=== PATIENT | male | born 1970 | race Caucasian/White ===

== ENCOUNTER 2020-02-15 13:19 | Outpatient (CLI) | payer OTHER, SELFPAY ==
--- NOTE | 2020-02-16 14:39 | ONC CON_ITS ---
Dr. Thornton New Patient Note Patient: Sylvester Ojeda Unit #: [id number]: 1970 Dicatated By: Isabell Thornton M.D.Date of Visit: Feb 15, 2020 Onc MED New Patient/Consult Referring Physician: Cezar Rios M.D. History of Present Illness: Mr. Sylvester Ojeda, is a 49-year-old gentleman with a history of metastatic renal cell carcinoma diagnosed on June 07, 2018 when he underwent liver biopsy which confirmed poorly differentiated carcinoma, consistent with renal primary. As per patient, before diagnosis he was having excessive drowsiness subsequently on June 06, 2018 he was admitted to [facility] in [place] with hypercalcemia at that time he underwent CT scan of chest abdomen pelvis which confirmed right renal mass with multiple lung nodules and liver lesions. Patient also had CT scan of head which was negative for metastatic disease at that time his calcium level was 16.7 with a creatinine 2.77, patient was treated with hydration and also received a dose of Aredia 60 mg. Patient was started on Cabometyx 60 mg p.o. daily on June 18, 2018, and reevaluation on July 02, 2018 showed his creatinine improved to 1.95 from 2.77 but calcium again increased to 14.5 at that time denosumab 120 mg was started on July 02, 2018 and patient developed skin rash and hypertension due to Cabometyx and on September 08, 2018 his Cabometyx dose was decreased to 40 mg p.o. daily due to related side effects. Which he tolerated better and then on December 01, 2018 he went to hospital with shortness of breath CT angio PE protocol revealed moderate sized pleural effusion, thoracentesis was performed and due to recurrent pleural effusions patient had chest tube placed on January 05, 2019. And his Cabometyx was discontinued. Patient was started on Yervoy/Opdivo on on January 28, 2019 and received 3 cycles and it was discontinued because of elevated bilirubin. Patient was treated with steroid for his abnormal LFTs with return to normal. Patient was placed back on single agent Opdivo every 2 weeks on May 2019, which he tolerated well his follow-up CT scan of chest abdomen pelvis done on November 16, 2019 showed 1.3 x 0.9 cm right lower lobe nodule previously measured 1.2 x 0.9., Adjacent right lower lobe nodule is unchanged. 0.6 cm. Segment left lower lobe nodules unchanged. 1 x 0.9 cm perifissural nodule in the middle lobe is unchanged. No new or enlarging dominant nodules or masses seen. Atelectasis or scarring of right base is seen. Mediastinum and chidi showed right Tracheal node measuring 1.4 cm compared to 1.1 cm on previous study subcarinal node measuring up to 1.7 cm compared to 0.6 cm on prior study. An additional 1.8 cm subcarinal lymph node is present as well. 1.5 cm right hilar node previously measured 1.3 cm. 1.7 cm right hilar node previously measured 1.6 cm. Liver showed ill-defined segment 7 lesion measuring up to 2.6 cm which is similar to prior study and remaining bilateral hepatic metastatic disease appears similar to prior. No new lesions seen. Bone shows multiple old right rib fractures. No suspicious sclerotic or lytic bone lesion seen. Patient continue with biweekly Opdivo and follow-up CT scan of chest abdomen pelvis done on January 31, 2020 showed with the exception of smaller subcarinal lymph node the other enlarged mediastinal lymph nodes are unchanged. Stable pulmonary nodules. Stable hepatic metastatic disease. Stable lobulated mass in the right kidney. Now seen are multiple lytic lesions within the pelvis, sacrum, thoracic and lumbar spine and ribs bilaterally.Patient decided to move to [place] from [place], and came to our office in February 2020 to establish care. Today patient is complaining of right chest wall pain and now being controlled with the morphine and Percocet. But requiring more medication. Denies any trauma to his ribs, no hemoptysis or hematemesis, no hematuria, appetite is good., Last dose of Opdivo was On January 31, 2020, Prior to moving to [place] Past Medical History: There is no documented medical history. Past Surgical History: There is no documented surgical history. Medications: Aspirin Adult Low Dose 1 Tablet (of 81 mg) Tablet, enteric coated Oral daily, Atorvastatin Calcium 1 Tablet (of 40 mg) Oral daily, cloNIDine HCl 1 Tablet (of 0.1 mg) Oral b.i.d., hydrALAZINE HCl 1 Tablet (of 50 mg) Oral b.i.d., HYDROcodone-Acetaminophen Tablet Oral PRN, Lisinopril 1 Tablet (of 40 mg) Oral daily, Methocarbamol Tablet Oral, Metoprolol Tartrate 1 Tablet (of 100 mg) Oral b.i.d., Morphine Sulfate ER 1 Tablet (of 30 mg) Tablet, controlled release Oral b.i.d., NIFEdipine ER 1 Tablet (of 60 mg) Tablet SR 24 HR Oral daily, Omeprazole 1 Tablet (of 20 mg) Tablet, enteric coated Oral daily, Ondansetron HCl Tablet Oral, Sertraline HCl 1 Tablet (of 50 mg) Oral daily, Temazepam 1 Capsule (of 30 mg) Oral daily Allergies: No Known Allergies. Social History: Mr. Ojeda is . Mr. Ojeda has never smoked. He is a former drinker. Family History: There is no documented family history. Review Of Symptoms: Constitutional - Appetite is fair and weight is stable. No fever, night sweats, or hot flashes. Energy level is good, ENMT - No sinus congestion. Positive for nasal drainage. No mouth sores. No sore throat or difficulty swallowing, Hematologic/Lymphatic - No abnormal bruising or bleeding, Respiratory - No shortness of breath. No cough. No pleuritic pain or hemoptysis, Cardiovascular - No angina pain. No palpitations, Gastrointestinal - No nausea or vomiting. Positive for heartburn, no acid reflux. No diarrhea or constipation. No blood in the stool or black stools, Genitourinary (M) - No dysuria or hematuria. No urinary frequency. No urgency or incontinence, Musculoskeletal - Positive for generalized joint pain, Neurologic - No headache or dizziness. No numbness or tingling. No other focal neurologic symptoms, Psychiatric - Positive for anxiety, no depression. No insomnia. Vital Signs: Performed on Feb 15, 2020 13:58: 7, 43.42 (HIGH), 2.27 sq.m, 66 in, 97 %, 52 /min (LOW), 16 /min, 143/90 mm(hg) (HIGH), 97.7 F (LOW), and 269.0 lbs (HIGH). Performance Status: 1 - No physically strenuous activity, but ambulatory and able to carry out light or sedentary work (e.g. office work, light house work). (ECOG) Physical Examination: ENMT - No mouth sores, no thrush, no jaundice, Respiratory - Lungs are clear to auscultation, Cardiovascular - Regular rate and rhythm of heart, Abdomen - Soft, bowel sounds present, Extremities - No visible edema. Lab/Imaging: Most recent lab results are not available for this patient. Impression: Metastatic renal cell carcinoma with extensive mets involving bilateral lungs, mediastinum as well as liver and primary in the right kidney, diagnosed in June 2018 per liver biopsy, initially treated with Cabometyx, patient developed side effect like hypertension and skin reaction, Cabometyx dose was reduced to 40 mg p.o. daily from 60 mg, subsequently patient admitted to hospital with progressive pleural effusion which was drained, due to recurrence required chest tube placement. Cabometyx was discontinued in November 2018, he was started on Yervoy/Opdivo on January 28, 2019, patient received 3 doses of immunotherapy but then presented with elevated bilirubin, he was treated with steroids and changed to biweekly Opdivo alone on May 2019. Follow-up CT scan of chest abdomen pelvis done on January 31, 2020 showed stable disease in the lung and liver but no progressive bone mets. Plan: Discussed with patient regarding disease status, patient has metastatic renal cell carcinoma with extensive liver as well as pulmonary/mediastinal mets, now being treated with biweekly Opdivo with decent disease control except now with new bone mets seen on follow-up CT scan of chest abdomen pelvis done on January 31, 2020 and the patient is also having pain in the right chest wall and pelvis. At this point will consider bone scan to confirm bone mets and also refer him to pain clinic, as patient is a self-pay so we will arrange Opdivo and continue with biweekly Opdivo and he will return to clinic 2 weeks after next dose of Opdivo for further discussion with CBC CMP and follow-up bone scan. Signed By: Isabell Thornton M.D. <<Signature on File>>
== END 2020-02-15 13:20 | disposition home or self-care (01) ==
LOC: ONCMED 13:22
PROVIDERS: Visit Provider Internal Medicine Hematology & Oncology
DX: C64.1 Malignant neoplasm of right kidney, except renal pelvis (principal); C78.01 Secondary malignant neoplasm of right lung; C78.7 Secondary malignant neoplasm of liver and intrahepatic bile duct; C78.02 Secondary malignant neoplasm of left lung; C78.1 Secondary malignant neoplasm of mediastinum; R07.89 Other chest pain; Z79.899 Other long term (current) drug therapy; Z79.891 Long term (current) use of opiate analgesic
CPT/HCPCS: 99203; 99214

== ENCOUNTER 2020-03-01 06:08 | Outpatient (CLI) | payer OTHER, SELFPAY | END 2020-03-01 06:09 | disposition home or self-care (01) | LOC: ONCMED 06:10 | PROVIDERS: Visit Provider Internal Medicine Hematology & Oncology | DX: Z51.12 Encounter for antineoplastic immunotherapy (principal); C64.1 Malignant neoplasm of right kidney, except renal pelvis; C78.00 Secondary malignant neoplasm of unspecified lung; C79.51 Secondary malignant neoplasm of bone | CPT/HCPCS: 96413; J7050; J9299 ==

== ENCOUNTER → 2020-03-05 08:51 | Outpatient (BNVA) | payer OTHER, SELFPAY | PROVIDERS: Referring Provider Internal Medicine Hematology & Oncology; Visit Provider Anesthesiology Pain Medicine | DX: C79.51 Secondary malignant neoplasm of bone (principal); C64.9 Malignant neoplasm of unspecified kidney, except renal pelvis; Z79.891 Long term (current) use of opiate analgesic | CPT/HCPCS: 99204 ==

== ENCOUNTER 2020-03-13 13:31 | Inpatient (IN) | payer SELFPAY ==
[2020-03-13] VITALS (38 sets, daily range): BP systolic 98–134; BP diastolic 64–77; PULSE 37–70; RESP 12–28; TEMP 36.5–36.8; O2SAT 93–98; BMI 40.3
--- NOTE | 2020-03-13 14:38 | XR_ITS ---
WS: [id number] XR chest 2V* [id number] REASON FOR EXAM: chest pain FINDINGS: Significant tortuosity of the aorta without significant dilatation. The heart size is normal. Chronic fibrotic appearing changes in the right lower lung. No acute infiltrate noted. 3.4 x 5.8 cm pleural-based mass projecting over the periphery of the right lower lung. There appears to be an associated abnormality in the right sixth rib. XR/XR chest 2V* [id number] IMPRESSION: Probable chest wall metastasis involving the right posterior lateral.
--- NOTE | 2020-03-13 14:39 | ED_ITS ---
HPI - General Adult General: Chief complaint: Weakness Stated complaint: Fatigue/Confusion/Body Aches Time Seen by Provider: 03/13/20 14:19 Source: patient Mode of arrival: ambulatory Limitations: no limitations History of Present Illness: HPI narrative: The patient is a 49-year-old gentleman with a history of stage IV renal cell carcinoma on the right. He presents to the emergency department with his with complaints of confusion, gait difficulties, left lower chest pain anteriorly, and weakness. His states he is displaying symptoms exactly like a few years ago when at that time he was diagnosed with hypercalcemia. She therefore brought him in to be evaluated for this. He denies any fever, cough, shortness of breath, urinary symptoms. Onset (ago): day(s) (2) Associated symptoms: Reports chest pain and confusion; Deny dyspnea, headache(s), nausea, rash, palpitations or vomiting Review of Systems General: Reports: 10 or more systems reviewed and unremarkable except in HPI and below Const: Denies: fever(s), chills or body aches Eyes: Denies: change in vision or blurry vision ENMT: Denies: throat pain, enlarged tonsils, odynophagia, hoarseness, mouth pain or swelling of lips/tongue Card: Reports: chest pain; Denies: palpitations, irregular heart rhythm, edema or swelling of feet/ankles Resp: Denies: dyspnea, productive cough or non-productive cough GI: Denies: abdominal pain, nausea or vomiting : Denies: flank pain, dysuria, urinary frequency, urinary urgency or urinary hesitancy Musc: Denies: neck pain, back pain or extremity swelling Skin/Breast: Denies: rash, pruritus or erythema Neuro: Reports: confusion and other (weakness); Denies: headache(s), numbness in extremities or weakness in extremities Endo: Denies: polyuria, polydipsia or tired all the time PFS ED PFSH: Medical History Cancer determined by renal biopsy Metastatic renal cell carcinoma Family History Father Diabetes Mother Cancer Social History Smoking and tobacco status: never smoked Second hand smoke exposure: No Alcohol intake: former History of recent travel: No Physical Exam Const: COMMON NORMALS: no acute distress, average body habitus, patient oriented x3, no limitations, healthy appearing, alert and well nourished HENMT: COMMON NORMALS: normocephalic, atraumatic and moist oral mucous membranes HEAD & SCALP: normocephalic and atraumatic Neck/C-Spine: COMMON NORMALS: no meningeal signs and no JVD Chest: COMMONS NORMALS: normal inspection of the chest CHEST: Yes tenderness (Left lower chest wall) Resp: COMMON NORMALS: normal respiratory effort, No retractions, No use of accessory muscles, clear to auscultation bilaterally and percussion normal AUSCULTATION: clear to auscultation bilaterally PERCUSSION: percussion normal Cardio: COMMON NORMALS: no JVD, regular rate, regular rhythm, S1 normal heart sound present, S2 normal heart sound present, No gallops present (Cardio), No clicks present (Cardio), No murmurs present (Cardio), No rub (Cardio) and Peripheral pulses 2+ throughout RATE: regular rate RHYTHM: regular rhythm HEART SOUNDS: S1 normal heart sound present and S2 normal heart sound present PERIPHERAL PULSES: Peripheral pulses 2+ throughout GI: COMMON NORMALS: Normal to inspection, nondistended, normoactive bowel sounds present, Soft to palpation, non-tender, No hepatosplenomegaly present, no masses and no bruits PALPATION: Yes Soft to palpation and Yes No hepatosplenomegaly present : COMMON NORMALS: Yes no CVA tenderness BLADDER/KIDNEY EXAM: Yes no CVA tenderness Back/Pelvis: COMMON NORMALS: no CVA tenderness Extremity: COMMON NORMALS: normal to inspection, full ROM, capillary refill normal, no calf tenderness and no pedal edema Neuro: COMMON NORMALS: patient oriented x3 SENSORIUM/ORIENTATION: Yes alert MENINGEAL SIGNS: Yes no meningeal signs Skin: COMMON NORMALS: no rashes or lesions noted, no wounds, turgor normal, no jaundice, no petechiae and no mottling GENERAL SKIN EXAM: no rashes or lesions noted and turgor normal Course Reevaluation(s): Reevaluation #1: Discussed his lab and imaging findings with him and his . Explained that he has severe hypercalcemia like they were worried and per cardiology that is most likely because of his bradycardia. He advised that we correct his electrolyte abnormality and he is heart rate should improve Consultations: Consultation #1: Dr. Powell, cardiology. He came down and evaluated the patient and felt that the bradycardia was secondary to electrolyte abnormalities. He does not think the patient needs pacing at this time. Consultation #2: Dr. Torrez, hospitalist and he kindly accepted this patient to his service. Vital Signs: Vital signs: Vital Signs Temperature 98.2 F 03/13/20 20:00 Pulse Rate 54 L 03/13/20 20:00 Respiratory Rate 14 03/13/20 21:31 Blood Pressure 134/77 03/13/20 20:00 Pulse Oximetry 96 03/13/20 21:31 MDM - General Adult MDM Narrative: Medical decision making narrative: 49-year-old male with renal cell carcinoma who presents to the emergency department with complaints of weakness, confusion, gait difficulties. Evaluation in the emergency shows that he has hypercalcemia of malignancy. He has had this once in the past and needed bisphosphonates as well as fluids. He was started on IV fluids and also given a dose of Reclast in the emergency department. He is admitted for further evaluation and management. In the emergency department he was noted to be bradycardic and dropped as low as the mid 30s. He received a total of 2 mg of intravenous atropine. Cardiology evaluated the patient and felt that this was secondary to electrolyte abnormalities. The patient is also on beta-blockers and calcium channel jorge which may also be contributing to the bradycardia. Medical Records: Attestation: I reviewed the patient's medical records. Lab Data: Attestation: I reviewed the patient's lab results. Labs: Lab Results 03/13/20 03/13/20 03/13/20 Range/Units 15:15 15:15 15:15 WBC 10.6 H (4.0-10.0) 10^3/ uL RBC 4.98 (4.1-5.3) 10^6/u L Hgb 13.8 (11.7-16.6) g/dL Hct 44.2 (42.0-52.0) % MCV 88.8 (80-94) fL MCH 27.7 L (28.0-34.0) pg MCHC 31.2 (30.0-36.0) g/dL RDW 13.5 (12.1-15.1) % Plt Count 282 (130-400) 10^3/c mm MPV 9.8 (7.4-10.4) fL Neut % (Auto) 66.3 % Lymph % (Auto) 20.5 % [place] % (Auto) 10.2 % Eos % (Auto) 2.2 % Baso % (Auto) 0.6 % Neut # (Auto) 7.06 (1.8-7.7) 10^3/u L Lymph # (Auto) 2.2 (0.8-4.8) 10^3/u L [place] # (Auto) 1.1 H (0.2-0.9) 10^3/u L Eos # (Auto) 0.2 (0.0-0.8) 10^3/u L Baso # (Auto) 0.1 (0.0-0.1) 10^3/u L Nucleated RBC % (a uto) 0 % Nucleated RBCs # 0.0 /100WBC D-Dimer 0.74 H (0-0.59) ug/mIFE U Sodium 134 L (136-145) mmol/L Potassium 4.2 (3.5-5.1) mmol/L Chloride 100 (98-107) mmol/L Carbon Dioxide 26 (22-29) mmol/L Anion Gap 12.2 (5-19) BUN 27 H (6-20) mg/dL Creatinine 2.2 H (0.7-1.2) mg/dL GFR Calculation 31.7 L (90-130) mL/min Glucose 100 (65-115) mg/dL Calculated Osmolal ity 283 L (285-295) mOsm/k g Calcium 15.4 H* (8.5-10.5) mg/dL Ionized Calcium Me as (1.1-1.4) mmol/L Phosphorus 2.5 (2.5-4.5) mg/dL Magnesium 1.8 (1.7-2.3) mg/dL Total Bilirubin 0.4 (0.15-1.2) mg/dL AST 18 (0-40) U/L ALT 11 (0-41) U/L Alkaline Phosphata se 140 H (40-130) IU/L Creatine Kinase 37 L (39-308) U/L Troponin T Baselin e (0-15) ng/L Troponin T 120 Min [place] (0-15) ng/L Delta Troponin T (0-10) ABS# C-Reactive Protein 21.3 H (0.0-4.9) mg/L Total Protein 7.2 (6.6-8.7) g/dL Albumin 3.3 L (3.5-5.2) g/dL Globulin 3.9 (1.3-4.6) g/dL Lipase 76 H (13-60) U/L PTH Intact (15-65) pg/mL Calcium (PTH Intac t) (8.5-10.5) mg/dL 03/13/20 03/13/20 03/13/20 Range/Units 15:15 16:50 16:50 WBC (4.0-10.0) 10^3/ uL RBC (4.1-5.3) 10^6/u L Hgb (11.7-16.6) g/dL Hct (42.0-52.0) % MCV (80-94) fL MCH (28.0-34.0) pg MCHC (30.0-36.0) g/dL RDW (12.1-15.1) % Plt Count (130-400) 10^3/c mm MPV (7.4-10.4) fL Neut % (Auto) % Lymph % (Auto) % [place] % (Auto) % Eos % (Auto) % Baso % (Auto) % Neut # (Auto) (1.8-7.7) 10^3/u L Lymph # (Auto) (0.8-4.8) 10^3/u L [place] # (Auto) (0.2-0.9) 10^3/u L Eos # (Auto) (0.0-0.8) 10^3/u L Baso # (Auto) (0.0-0.1) 10^3/u L Nucleated RBC % (a uto) % Nucleated RBCs # /100WBC D-Dimer (0-0.59) ug/mIFE U Sodium (136-145) mmol/L Potassium (3.5-5.1) mmol/L Chloride (98-107) mmol/L Carbon Dioxide (22-29) mmol/L Anion Gap (5-19) BUN (6-20) mg/dL Creatinine (0.7-1.2) mg/dL GFR Calculation (90-130) mL/min Glucose (65-115) mg/dL Calculated Osmolal ity (285-295) mOsm/k g Calcium (8.5-10.5) mg/dL Ionized Calcium Me as (1.1-1.4) mmol/L Phosphorus (2.5-4.5) mg/dL Magnesium (1.7-2.3) mg/dL Total Bilirubin (0.15-1.2) mg/dL AST (0-40) U/L ALT (0-41) U/L Alkaline Phosphata se (40-130) IU/L Creatine Kinase (39-308) U/L Troponin T Baselin e 46 H (0-15) ng/L Troponin T 120 Min [place] 42.89 H (0-15) ng/L Delta Troponin T -3.11 L (0-10) ABS# C-Reactive Protein (0.0-4.9) mg/L Total Protein (6.6-8.7) g/dL Albumin (3.5-5.2) g/dL Globulin (1.3-4.6) g/dL Lipase (13-60) U/L PTH Intact 4.6 L (15-65) pg/mL Calcium (PTH Intac t) 14.7 H* (8.5-10.5) mg/dL 11//20 Range/Units 17:00 WBC (4.0-10.0) 10^3/ uL RBC (4.1-5.3) 10^6/u L Hgb (11.7-16.6) g/dL Hct (42.0-52.0) % MCV (80-94) fL MCH (28.0-34.0) pg MCHC (30.0-36.0) g/dL RDW (12.1-15.1) % Plt Count (130-400) 10^3/c mm MPV (7.4-10.4) fL Neut % (Auto) % Lymph % (Auto) % [place] % (Auto) % Eos % (Auto) % Baso % (Auto) % Neut # (Auto) (1.8-7.7) 10^3/u L Lymph # (Auto) (0.8-4.8) 10^3/u L [place] # (Auto) (0.2-0.9) 10^3/u L Eos # (Auto) (0.0-0.8) 10^3/u L Baso # (Auto) (0.0-0.1) 10^3/u L Nucleated RBC % (a uto) % Nucleated RBCs # /100WBC D-Dimer (0-0.59) ug/mIFE U Sodium (136-145) mmol/L Potassium (3.5-5.1) mmol/L Chloride (98-107) mmol/L Carbon Dioxide (22-29) mmol/L Anion Gap (5-19) BUN (6-20) mg/dL Creatinine (0.7-1.2) mg/dL GFR Calculation (90-130) mL/min Glucose (65-115) mg/dL Calculated Osmolal ity (285-295) mOsm/k g Calcium (8.5-10.5) mg/dL Ionized Calcium Me as 2.0 H* (1.1-1.4) mmol/L Phosphorus (2.5-4.5) mg/dL Magnesium (1.7-2.3) mg/dL Total Bilirubin (0.15-1.2) mg/dL AST (0-40) U/L ALT (0-41) U/L Alkaline Phosphata se (40-130) IU/L Creatine Kinase (39-308) U/L Troponin T Baselin e (0-15) ng/L Troponin T 120 Min [place] (0-15) ng/L Delta Troponin T (0-10) ABS# C-Reactive Protein (0.0-4.9) mg/L Total Protein (6.6-8.7) g/dL Albumin (3.5-5.2) g/dL Globulin (1.3-4.6) g/dL Lipase (13-60) U/L PTH Intact (15-65) pg/mL Calcium (PTH Intac t) (8.5-10.5) mg/dL Imaging Data^: CXR: Attestation: I personally reviewed and interpreted this imaging study as follows: Radiologist's impression: [facility] [address] [place] [address] XRay Report Signed Patient: Sylvester Ojeda #: [id number] : 1970Acct#:[id number] Age/Sex: 49 / MADM Date: 03/13/20 Loc: ERRoom/Bed: Attending Dr: Ordering Provider/Ordering MD: Jaylene Durán MD, [facility] Date of Service: 03/13/20 Procedure(s): XR chest 2V* 22444 Accession Number(s): [id number] Report Number: [id number] WS: [id number] XR chest 2V* [id number] REASON FOR EXAM: chest pain FINDINGS: Significant tortuosity of the aorta without significant dilatation. The heart size is normal. Chronic fibrotic appearing changes in the right lower lung. No acute infiltrate noted. 3.4 x 5.8 cm pleural-based mass projecting over the periphery of the right lower lung. There appears to be an associated abnormality in the right sixth rib. XR/XR chest 2V* [id number] IMPRESSION: Probable chest wall metastasis involving the right posterior lateral. Dictated By:Joesph Curry Jr, MD Signed By:Joesph Curry Jr MDSigned Date/Time:03/13/201518 DD/ EKG Data^: EKG 1: Attestation: I personally reviewed and interpreted this EKG as follows: EKG interpretation date: 03/13/20 EKG interpretation time: 15:09 Prior EKG tracings: not available for review Interpretation: Bradycardic rhythm. Heart rate 44 bpm. Unclear if the patient has P waves so much of this is sinus bradycardia. Right bundle branch block. No ST changes Computer generated interpretation: Chest X-Ray 03/13/20 14:38 IMPRESSION: Probable chest wall metastasis involving the right posterior lateral. EKG 2: Attestation: I personally reviewed and interpreted this EKG as follows: EKG interpretation date: 03/13/20 EKG interpretation time: 16:57 Prior EKG tracings: available for review Interpretation: Sinus bradycardia. Heart rate 35 bpm. Intraventricular conduction delay. Computer generated interpretation: Chest X-Ray 11/10/20 14:38 IMPRESSION: Probable chest wall metastasis involving the right posterior lateral. Critical Care Time Critical Care Time: Critical Care Time: Yes Total Critical Care Time: 60 Attestation: This case had a high probability of a clinically significant, sudden, or life threatening deterioration of this patient's condition which required my full and direct attention, intervention and personal management. Discharge Plan Discharge Patient Disposition: Admitted As Inpatient Admit Provider: Elmer Torrez Clinical Impression: Hypercalcemia, Bone metastases, Metastatic renal cell carcinoma Condition: Stable Coding Level of Care Code ED Instrumentation Engineering Technician for Chg Fwd Exam Comprehensive
--- NOTE | 2020-03-13 14:44 | ECG_ITS ---
[facility] Test Date: 2020-03-13 Pat Name: Sylvester Ojeda Department: Room: Gender: Male Barking Machine Feeder: : 1970 Requested By: Jaylene Durán I Order Number: [id number] Jack MD: Peter Garcia M.D. Measurements Intervals [place] Rate: 44 P: MO: -1 QRS: 240 QRSD: 194 T: -30 QT: 481 QTc: 413 Interpretive Statements Possible junctional rhythm RIGHT AXIS DEVIATION [QRS AXIS > 100] RIGHT BUNDLE BRANCH BLOCK [120+ ms QRS DURATION, UPRIGHT V1, 40+ ms S IN I/aVL/V4/V5/V6] No previous ECG available for comparison Electronically Signed On 03-13-2020 19:22:01 DOUBLE NEEDLE OPERATOR LOCKSTITCH by Peter Garcia M.D. [id number]
[2020-03-13] MEDS: atropine 0.1 mg/mL Syr 10 mL 1 MG (15:28)
[2020-03-13 15:31] LABS: Basophils # 0.1 10^3/uL (0.0-0.1); Basophils % 0.6 %; Eosinophils # 0.2 10^3/uL (0.0-0.8); Eosinophils % 2.2 %; Hematocrit 44.2 % (42.0-52.0); Hemoglobin 13.8 g/dL (11.7-16.6); Lymphocytes # 2.2 10^3/uL (0.8-4.8); Lymphocytes % 20.5 %; Mean Corpuscular HGB Conc 31.2 g/dL (30.0-36.0); Mean Corpuscular Hemoglobin 27.7 pg (28.0-34.0); Mean Corpuscular Volume 88.8 fL (80-94); Mean Platelet Volume 9.8 fL (7.4-10.4); Monocytes # 1.1 10^3/uL (0.2-0.9); Monocytes % 10.2 %; Neutrophils # 7.06 10^3/uL (1.8-7.7); Neutrophils % 66.3 %; Nucleated Red Blood Cells % 0 %; Platelet Count 282 10^3/cmm (130-400); Red Blood Count 4.98 10^6/uL (4.1-5.3); Red Cell Distribution Width 13.5 % (12.1-15.1); White Blood Count 10.6 10^3/uL (4.0-10.0)
--- NOTE | 2020-03-13 15:31 | PC.NURSE ---
Patient was placed on cardiac rehab nurse at and was found to have a bradycardic rhythm at 32bpm, patient placed on Zoll monitor and was given 1mg of Atropine per Dr Durán orders. Patient's heart rate is 44bpm and is resting at this time with no symptoms.
[2020-03-13] MEDS: atropine 0.1 mg/mL Syr 10 mL 0.5 MG IVP ×2 (15:54→16:04)
[2020-03-13 15:55] LABS: D Dimer 0.74 ug/mIFEU (0-0.59)
[2020-03-13 15:56] LABS: Alanine Aminotransferase 11 U/L (0-41); Albumin Level 3.3 g/dL (3.5-5.2); Alkaline Phosphatase 140 IU/L (40-130); Anion Gap 12.2 (5-19); Aspartate Amino Transferase 18 U/L (0-40); Blood Urea Nitrogen 27 mg/dL (6-20); C Reactive Protein 21.3 mg/L (0.0-4.9); Carbon Dioxide 26 mmol/L (22-29); Chloride 100 mmol/L (98-107); Creatine Phosphokinase 37 U/L (39-308); Globulin 3.9 g/dL (1.3-4.6); Glomerular Filtration Rate 31.7 mL/min (90-130); Glucose 100 mg/dL (65-115); Lipase 76 U/L (13-60); Magnesium 1.8 mg/dL (1.7-2.3); Osmolality Calculated 283 mOsm/kg (285-295); Phosphorus 2.5 mg/dL (2.5-4.5); Potassium 4.2 mmol/L (3.5-5.1); Sodium 134 mmol/L (136-145); Total Bilirubin 0.4 mg/dL (0.15-1.2); Total Protein 7.2 g/dL (6.6-8.7)
[2020-03-13] MEDS: sodium chloride 0.9% 1,000 ML 999 ML IV (16:09)
[2020-03-13 16:10] LABS: Troponin(5th) Baseline 46 ng/L (0-15)
[2020-03-13 16:27] LABS: Calcium 15.4 mg/dL (8.5-10.5)
--- NOTE | 2020-03-13 16:44 | ECG_ITS ---
[facility] Test Date: 2020-03-13 Pat Name: Sylvester Ojeda Department: Room: Gender: Male Traffic Safety Administrator: : 1970 Requested By: Jaylene Durán I Order Number: [id number] Jack MD: Peter Garcia M.D. Measurements Intervals [place] Rate: 35 P: 48 GA: 143 QRS: -85 QRSD: 196 T: 11 QT: 510 QTc: 394 Interpretive Statements SINUS BRADYCARDIA WITH SINUS ARRHYTHMIA INTRAVENTRICULAR CONDUCTION DELAY [130+ ms QRS DURATION] LATERAL MYOCARDIAL INFARCTION , OF INDETERMINATE AGE [40+ ms Q WAVE AND/OR ST/T ABNORMALITY IN I/aVL/V5/V6] CRITICAL TEST RESULT Compared to ECG 03/13/2020 15:09:38 Intraventricular conduction delay now present Myocardial infarct finding now present Right-axis deviation no longer present Right bundle-branch block no longer present Electronically Signed On 03-13-2020 19:27:30 SOCIAL MEDIA CAMPAIGN MANAGER by Peter Garcia M.D. [id number]
[2020-03-13 17:32] LABS: Troponin 5 2HR 42.89 ng/L (0-15)
[2020-03-13] MEDS: sodium chloride 0.9% 250 ML IV (17:35)
[2020-03-13 17:38] LABS: Troponin 5 2HR Delta -3.11 ABS# (0-10)
--- NOTE | 2020-03-13 17:53 | PM.HP ---
Providers/Chief Complaint Admitting Physician: Elmer Torrez MD Chief Complaint: Fatigue/Confusion/Body Aches History of Present Illness Sylvester Ojeda is a 49 year old male 49-year-old gentleman with PMH of metastatic renal cell carcinoma diagnosed on June 07, 2018 ( liver biopsy which confirmed poorly differentiated carcinoma, consistent with renal primary ) ,HTN was admitted with c/o confusion, lethargy, constipation for the last 2 days.Upon arrival in the ER CMP has shown Corrected Serum Calcium of : 15.4. On ROS he deny any cough, chest pain,SOB,N/V/D,urinary complains,abdominal pain,headache,cough, fever. EKG: SINUS BRADYCARDIA and corrected ( QTc: 394 ) Xray Chest : Probable chest wall metastasis involving the right posterior lateral. Troponin T : Baseline : 46 2 H T: 42.89 Delta : -3.11 Review of Systems General: Reports: 10 or more systems reviewed and unremarkable except in HPI and below Const: Denies: fever(s), chills, body aches, change in appetite or diaphoresis Card: Denies: palpitations, swelling of feet/ankles, dyspnea on exertion, orthopnea or leg pain with exertion Resp: Denies: dyspnea, productive cough, wheezing or pain on inspiration GI: Denies: abdominal pain, nausea, vomiting or diarrhea : Denies: flank pain or difficulty urinating Musc: Denies: back pain, extremity pain or extremity swelling Neuro: Denies: headache(s), difficulty walking or confusion Medications/Allergies Home Medications Medication Instructions Recorded Confirmed Last Taken Type aspirin 81 mg tablet,delayed 81 mg PO DAILY 03/05/20 03/13/20 03/13/20 History release atorvastatin 40 mg tablet 40 mg PO DAILY 03/05/20 03/13/20 03/13/20 History clonidine HCl 0.1 mg tablet 0.1 mg PO BID 03/05/20 03/13/20 03/13/20 History diclofenac sodium 1 % topical gel 2 gm TOPICAL QID 03/05/20 03/13/20 Unknown History hydralazine 50 mg tablet 50 mg PO BID tab 03/05/20 03/13/20 03/13/20 History hydrocodone 5 mg-acetaminophen 325 1 tab PO BID PRN 30 Days #60 tab 03/05/20 03/13/20 03/13/20 Rx mg tablet lisinopril 40 mg tablet 40 mg PO DAILY 03/05/20 03/13/20 03/13/20 History methocarbamol 500 mg tablet 500 mg PO TID tab 03/05/20 03/13/20 03/13/20 History metoprolol tartrate 100 mg tablet 100 mg PO BID tab 03/05/20 03/13/20 03/13/20 History morphine 30 mg tablet, crush 30 mg PO Q12H 30 Days #60 each 03/05/20 03/13/20 03/13/20 Rx resistant, extended release naloxegol 25 mg tablet 25 mg PO QAM #30 tab 03/05/20 03/13/20 Unknown Rx naloxone 4 mg/actuation nasal spray 4 mg INTRANASAL Q3M PRN #2 each 03/05/20 03/13/20 Unknown Rx nifedipine 60 mg tablet,extended 60 mg PO DAILY 03/05/20 03/13/20 03/13/20 History release nivolumab 240 mg/24 mL intravenous 240 mg IVP .BIWEELY ml 03/05/20 03/13/20 Unknown History solution omeprazole 20 mg capsule,delayed 20 mg PO DAILY 03/05/20 03/13/20 03/13/20 History release ondansetron HCl 4 mg tablet 4 mg PO DAILY PRN tab 03/05/20 03/13/20 03/13/20 History sertraline 50 mg tablet 50 mg PO DAILY 03/05/20 03/13/20 03/13/20 History temazepam 30 mg capsule 30 mg PO .HS cap 03/05/20 03/13/20 03/12/20 History Allergies Allergy/AdvReac Type Severity Reaction Status Date / Time No Known Allergies Allergy Verified 03/13/20 13:43 PFSH Acute PFSH: Medical History Cancer determined by renal biopsy Metastatic renal cell carcinoma Family History (Reviewed 03/13/20 @ 14:44 by Jaylene Durán MD, [facility] [place] [facility] [place] Father Diabetes Mother Cancer Social History (Reviewed 03/13/20 @ 14:44 by Jaylene Durán MD, [facility] [facility] [place] Smoking and tobacco status: never smoked Second hand smoke exposure: No Alcohol intake: former History of recent travel: No Vitals/I&O/Wt Last Vital Signs Temp 97.7 F 03/13/20 13:39 Pulse 40 L 03/13/20 15:13 Resp 13 03/13/20 15:30 BP 100/66 03/13/20 15:13 Pulse Ox 95 03/13/20 15:13 03/13/20 03/13/20 03/13/20 06:59 14:59 22:59 Intake Total 1000 / 1000 Balance 1000 / 1000 Weight last 48 hrs Weight 113.398 kg Physical Exam Const: COMMON NORMALS: patient oriented x3 HENMT: COMMON NORMALS: normocephalic, atraumatic, hearing grossly normal bilaterally and external ears normal HEAD & SCALP: normocephalic and atraumatic EXTERNAL EAR: Yes external ears normal Eye: COMMON NORMALS: no scleral icterus GENERAL EYE: appearance normal, both eyes and all related structures Chest: COMMONS NORMALS: normal inspection of the chest and normal palpation of entire chest wall CHEST: Yes Symmetrical chest wall rise Resp: COMMON NORMALS: normal respiratory effort, No retractions, No use of accessory muscles and clear to auscultation bilaterally EFFORT & INSPECTION: Yes symmetric chest movement AUSCULTATION: clear to auscultation bilaterally Cardio: COMMON NORMALS: regular rate, regular rhythm, S1 normal heart sound present, S2 normal heart sound present, No gallops present (Cardio), No murmurs present (Cardio), No rub (Cardio) and Peripheral pulses 2+ throughout RATE: regular rate RHYTHM: regular rhythm HEART SOUNDS: S1 normal heart sound present and S2 normal heart sound present PERIPHERAL PULSES: Peripheral pulses 2+ throughout GI: COMMON NORMALS: Normal to inspection, nondistended, normoactive bowel sounds present, Soft to palpation, non-tender, No hepatosplenomegaly present and no masses AUSCULTATION: Yes normoactive bowel sounds PALPATION: Yes Soft to palpation and Yes No hepatosplenomegaly present RECTAL EXAM: Yes deferred Extremity: COMMON NORMALS: no clubbing, cyanosis or edema and no pedal edema Neuro: COMMON NORMALS: patient oriented x3 Data : 03/13/20 15:15 03/13/20 15:15 A&P Assessment and plan (1) Hypercalcemia: Patient has known prior h/o of hypercalcemia of malignancy and has received both Zoledronic acid as well Denosumab (RANK inhibitors in the past ) Current plan: Calcitonin 450 u SC * 1 Dose Zoledronic acid ( Reclast ) * 1 dose Has got 1 l BOLUS n.s Currently on 250 cc N.S /HR Monitor I/O Monitor CMP Intact PTH Status: Acute (2) MEÑO (acute kidney injury): MEÑO V/S MEÑO ON CKD SCR: 2.2 Baseline SCR is unkown Continue I.V Hydration Status: Acute (3) Bradycardia: Asymptomatic Sinus Bradycardia likely 2/2 to electrolytes abnormality Tele Status: Acute (4) Hypertension: Currently Hypotensive Monitor B/P Status: Acute (5) Metastatic renal cell carcinoma: No acute intervention for now Status: Acute (6) Bone metastases: Pain Control Status: Acute Additional A&P Information DVT PPX: Heparin 5000 U SC Q12 H DAILY Code Status :Full code Disposition : Home Attestations Medical Necessity Statement*: Patient needs to be in hospital for the management of severe smyptomatic hypercalcemia of malignancy.Anticipated LOS is greater then 2 midnights. Coding Level of Care Code Acute Rn Clinical Quality for Chg Fwd Diagnoses Hypercalcemia E83.52 MEÑO (acute kidney injury) N17.9 Bradycardia R00.1 Hypertension I10 Metastatic renal cell carcinoma C64.9 Bone metastases C79.51
--- NOTE | 2020-03-13 18:20 | PM.CONSULT ---
Providers/Reason For Consult Consulting Physican/Specialty*: Robi Powell MD/Cardiology Reason for Consult*: Significant bradycardia Requesting Physcian: Betzaida Durán MD History of Present Illness History of Present Illness Sylvester Ojeda is a 49 year old male with PMH of metastatic renal cell carcinoma,hypertension being followed by Dr Thornton presented with 2 days of significant fatigue, weakness, constipation and confusion. According to patient, he had hypercalcemia in the past and felt that the symptoms are similar and that prompted him to present to the ER today. On presentation his calcium level was found to be >15. He had significant bradycardia in 30s. Patient does not have syncope, significant chest pain or presyncope.. He does feel short of breath occasionally. His blood pressure at time of my evaluation was 110/60mmhg. He mentions on one of his prior hospital admissions, he was found to have low heart rates as well but not as low as today. Review of Systems General: Reports: 10 or more systems reviewed and unremarkable except in HPI and below Const: Denies: fever(s), chills, body aches, change in appetite or diaphoresis Card: Denies: palpitations, swelling of feet/ankles, dyspnea on exertion, orthopnea or leg pain with exertion Resp: Denies: dyspnea, productive cough, wheezing or pain on inspiration GI: Denies: abdominal pain, nausea, vomiting or diarrhea : Denies: flank pain or difficulty urinating Musc: Denies: back pain, extremity pain or extremity swelling Neuro: Denies: headache(s), difficulty walking or confusion Meds/Allergies Home Medications and Allergies Home Medications Medication Instructions Recorded Confirmed Last Taken Type aspirin 81 mg tablet,delayed 81 mg PO DAILY 03/05/20 03/13/20 03/13/20 History release atorvastatin 40 mg tablet 40 mg PO DAILY 03/05/20 03/13/20 03/13/20 History clonidine HCl 0.1 mg tablet 0.1 mg PO BID 03/05/20 03/13/20 03/13/20 History diclofenac sodium 1 % topical gel 2 gm TOPICAL QID 03/05/20 03/13/20 Unknown History hydralazine 50 mg tablet 50 mg PO BID tab 03/05/20 03/13/20 03/13/20 History hydrocodone 5 mg-acetaminophen 325 1 tab PO BID PRN 30 Days #60 tab 03/05/20 03/13/20 03/13/20 Rx mg tablet lisinopril 40 mg tablet 40 mg PO DAILY 03/05/20 03/13/20 03/13/20 History methocarbamol 500 mg tablet 500 mg PO TID tab 03/05/20 03/13/20 03/13/20 History metoprolol tartrate 100 mg tablet 100 mg PO BID tab 03/05/20 03/13/20 03/13/20 History morphine 30 mg tablet, crush 30 mg PO Q12H 30 Days #60 each 03/05/20 03/13/20 03/13/20 Rx resistant, extended release naloxegol 25 mg tablet 25 mg PO QAM #30 tab 03/05/20 03/13/20 Unknown Rx naloxone 4 mg/actuation nasal spray 4 mg INTRANASAL Q3M PRN #2 each 03/05/20 03/13/20 Unknown Rx nifedipine 60 mg tablet,extended 60 mg PO DAILY 03/05/20 03/13/20 03/13/20 History release nivolumab 240 mg/24 mL intravenous 240 mg IVP .BIWEELY ml 03/05/20 03/13/20 Unknown History solution omeprazole 20 mg capsule,delayed 20 mg PO DAILY 03/05/20 03/13/20 03/13/20 History release ondansetron HCl 4 mg tablet 4 mg PO DAILY PRN tab 03/05/20 03/13/20 03/13/20 History sertraline 50 mg tablet 50 mg PO DAILY 03/05/20 03/13/20 03/13/20 History temazepam 30 mg capsule 30 mg PO .HS cap 03/05/20 03/13/20 03/12/20 History Allergies Allergy/AdvReac Type Severity Reaction Status Date / Time No Known Allergies Allergy Verified 03/13/20 13:43 Current Medications Current Medications Generic Name Dose Route Start Last Admin Trade Name Freq PRN Reason Stop Dose Admin Sodium Chloride 250 mls @ 250 mls/hr 03/13/20 17:30 03/13/20 17:35 Sodium Chloride 0.9% IV 250 mls/hr .Q1H ROC Administration Sodium Chloride 1,000 mls @ 250 mls/hr 03/13/20 17:45 03/13/20 18:05 Sodium Chloride 0.9% IV Not Given .Q4H ROC PFSH Acute PFSH: Medical History Cancer determined by renal biopsy Metastatic renal cell carcinoma Family History Father Diabetes Mother Cancer Social History Smoking and tobacco status: never smoked Second hand smoke exposure: No Alcohol intake: former History of recent travel: No Vitals/I&O/Wt Last Vital Signs Temp 97.7 F 03/13/20 13:39 Pulse 40 L 03/13/20 15:13 Resp 13 03/13/20 15:30 BP 100/66 03/13/20 15:13 Pulse Ox 95 03/13/20 15:13 03/13/20 03/13/20 03/13/20 06:59 14:59 22:59 Intake Total 1000 / 1000 Balance 1000 / 1000 Weight last 48 hrs Weight 250 lb Physical Exam Const: COMMON NORMALS: patient oriented x3 HENMT: COMMON NORMALS: normocephalic, atraumatic, hearing grossly normal bilaterally and external ears normal HEAD & SCALP: normocephalic and atraumatic EXTERNAL EAR: Yes external ears normal Eye: COMMON NORMALS: no scleral icterus GENERAL EYE: appearance normal, both eyes and all related structures Chest: COMMONS NORMALS: normal inspection of the chest and normal palpation of entire chest wall CHEST: Yes Symmetrical chest wall rise Resp: COMMON NORMALS: normal respiratory effort, No retractions, No use of accessory muscles and clear to auscultation bilaterally EFFORT & INSPECTION: Yes symmetric chest movement AUSCULTATION: clear to auscultation bilaterally Cardio: COMMON NORMALS: regular rate (bradycardic), regular rhythm, S1 normal heart sound present, S2 normal heart sound present, No gallops present (Cardio), No murmurs present (Cardio), No rub (Cardio) and Peripheral pulses 2+ throughout RHYTHM: regular rhythm HEART SOUNDS: S1 normal heart sound present and S2 normal heart sound present PERIPHERAL PULSES: Peripheral pulses 2+ throughout GI: COMMON NORMALS: Normal to inspection, nondistended, normoactive bowel sounds present, Soft to palpation, non-tender, No hepatosplenomegaly present and no masses AUSCULTATION: Yes normoactive bowel sounds PALPATION: Yes Soft to palpation and Yes No hepatosplenomegaly present RECTAL EXAM: Yes deferred Extremity: COMMON NORMALS: no clubbing, cyanosis or edema and no pedal edema Neuro: COMMON NORMALS: patient oriented x3 A&P Assessment and plan (1) Bradycardia: Status: Acute (2) Hypertension: Status: Acute (3) Hypercalcemia: Status: Acute (4) Bone metastases: Status: Acute (5) Metastatic renal cell carcinoma: Status: Acute Patient has significant bradycardia in the setting of hypercalcemia. I have reviewed his EKGs that are consistent with sinus bradycardia with sinus arrhythmias. He is hemodynamically stable. Bradycardia is related to electrolyte abnormalities. It will improve with improvement in calcium levels. Avoid rate limiting medications Tele monitoring No indication for pacemaker at this time Thank you for involving us with the care of this patient. We will follow patient. 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
[2020-03-13 18:31] LABS: Parathyroid Hormone 4.6 pg/mL (15-65)
[2020-03-13 18:44] LABS: Calcium 14.7 mg/dL (8.5-10.5)
[2020-03-13] MEDS: heparin 5,000 unit/mL INJ 1 mL 5000 UNIT SUBCUT (18:44)
[2020-03-13] MEDS: calcitonin,salmon 200 unit/mL SDV 2mL 450 UNIT SUBCUT (18:44)
--- NOTE | 2020-03-13 20:44 | ECG_ITS ---
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 Measurements Intervals [place] Rate: 58 P: 25 LA: 141 QRS: -85 QRSD: 198 T: 39 QT: 471 QTc: 466 Interpretive Statements SINUS BRADYCARDIA RIGHT BUNDLE BRANCH BLOCK [120+ ms QRS DURATION, UPRIGHT V1, 40+ ms S IN I/aVL/V4/V5/V6] LEFT ANTERIOR FASCICULAR BLOCK [QRS AXIS <= -45, QR IN I, RS IN II] SEPTAL MYOCARDIAL INFARCTION [40+ ms Q WAVE IN V1/V2], OF INDETERMINATE AGE Compared to ECG 03/13/2020 16:57:09 Right bundle-branch block now present Left anterior fascicular block now present Sinus arrhythmia no longer present Intraventricular conduction delay no longer present Myocardial infarct finding still present Electronically Signed On 03-14-2020 10:21:34 AUTHOR'S AGENT by Robi Powell M.D. [id number]
[2020-03-13 20:55] LABS: Add Urine Microscopic? NO
[2020-03-13 21:08] LABS: Bilirubin Urine Neg (Negative); Blood Urine Neg (Negative); Glucose Urine UA Norm (Normal); Ketones Urine Negative (Negative); Leukocyte Esterase Urine Negative (Negative); Nitrate Urine Negative (Negative); Protein Urine Neg (Negative); Urine Appearance Clear (CLEAR); Urine Color Yellow (Yellow); Urobilinogen Urine Norm (Negative)
[2020-03-13] MEDS: temazepam 15 mg Capsule 30 MG PO (21:30)
[2020-03-13] MEDS: sodium chloride 0.9% 1,000 ML 250 ML IV (22:03)
[2020-03-13 22:20] LABS: Troponin 5 6HR 35.21 ng/L (0-15); Troponin 5 6HR Delta -10.79 ng/L (0-12)
--- NOTE | 2020-03-13 23:36 | PC.NURSE ---
NURSING NOTE: PT ARRIVED TO CSU AT 2000 THIS EVENING. UP WITH ASSIST X1 FOR AMBULATION/PT DIZZY UPON STANDING. PT C/O LEFT FLANK PAIN UPON ARRIVAL OF 9/10 ON PAIN SCALE. PAIN MEDICATION GIVEN ORDERED. HR IN THE 50'S UPON ARRIVAL/ OF 2330 HEART RATE SUSTAINING IN THE LOW TO MID 60'S. SINUS RHYTHM ON THE MONITOR. PT ALERT AND ORIENTED X4. MOVES ALL EXTREMITIES AND FOLLOWS ALL COMMANDS. ALL VS AND ASSESSMENTS CHARTED. RESTING WITH EYES CLOSED. NO DISTRESS NOTED AT THIS TIME.
[2020-03-14] VITALS (64 sets, daily range): BP systolic 100–159; BP diastolic 57–102; PULSE 56–82; RESP 9–31; TEMP 36.1–36.8; O2SAT 88–96
[2020-03-14] MEDS: sodium chloride 0.9% 1,000 ML 250 ML IV ×3 (01:56→09:47)
[2020-03-14 05:41] LABS: Basophils % 0.4 %; Eosinophils # 0.1 10^3/uL (0.0-0.8); Eosinophils % 1.5 %; Hematocrit 40.3 % (42.0-52.0); Hemoglobin 12.6 g/dL (11.7-16.6); Lymphocytes # 1.8 10^3/uL (0.8-4.8); Lymphocytes % 21.6 %; Mean Corpuscular HGB Conc 31.3 g/dL (30.0-36.0); Mean Corpuscular Hemoglobin 27.9 pg (28.0-34.0); Mean Corpuscular Volume 89.4 fL (80-94); Mean Platelet Volume 9.8 fL (7.4-10.4); Monocytes # 0.7 10^3/uL (0.2-0.9); Monocytes % 8.5 %; Neutrophils # 5.72 10^3/uL (1.8-7.7); Neutrophils % 67.8 %; Nucleated Red Blood Cells % 0 %; Platelet Count 224 10^3/cmm (130-400); Red Blood Count 4.51 10^6/uL (4.1-5.3); Red Cell Distribution Width 13.3 % (12.1-15.1); White Blood Count 8.4 10^3/uL (4.0-10.0)
[2020-03-14] MEDS: heparin 5,000 unit/mL INJ 1 mL 5000 UNIT SUBCUT ×2 (05:51→18:44)
--- NOTE | 2020-03-14 06:18 | PC.NURSE ---
SHIFT SUMMARY: PT RESTING QUIETLY. UP TO BR AT THIS TIME. REQUIRES SBA X1/IS UNSTEADY ON FEET. ALERT AND ORIENTED X4. DENIES PAIN. ALL VS AND ASSESSMENTS CHARTED.
[2020-03-14 06:25] LABS: Alanine Aminotransferase 9 U/L (0-41); Alkaline Phosphatase 125 IU/L (40-130); Anion Gap 12.1 (5-19); Aspartate Amino Transferase 16 U/L (0-40); Blood Urea Nitrogen 22 mg/dL (6-20); Calcium 12.7 mg/dL (8.5-10.5); Carbon Dioxide 24 mmol/L (22-29); Chloride 105 mmol/L (98-107); Globulin 3.4 g/dL (1.3-4.6); Glomerular Filtration Rate 42.7 mL/min (90-130); Glucose 98 mg/dL (65-115); Magnesium 1.4 mg/dL (1.7-2.3); NT Pro B Type Natriuretic Pept 735 pg/mL (0-125); Osmolality Calculated 287 mOsm/kg (285-295); Phosphorus 2.1 mg/dL (2.5-4.5); Potassium 4.1 mmol/L (3.5-5.1); Sodium 137 mmol/L (136-145); Thyroid Stimulating Hormone 0.52 uIU/mL (0.27-4.20); Total Bilirubin 0.4 mg/dL (0.15-1.2); Total Protein 6.4 g/dL (6.6-8.7)
[2020-03-14] MEDS: atorvastatin 40 mg Tablet PO (08:01)
[2020-03-14] MEDS: docusate sodium 100 mg Capsule PO ×2 (08:01→18:44)
[2020-03-14] MEDS: aspirin 81 mg EC Tablet PO (08:01)
[2020-03-14] MEDS: sertraline 50 mg Tablet PO (08:01)
--- NOTE | 2020-03-14 10:35 | P.PN_ITS ---
Subjective Subjective: Interval history: Patient has significantly improved today,currently not confused. Vitals and labs stable Good Urine Output : with marked improvement in MEÑO. Medications: Reviewed: Yes Vitals/I&O/Wt Last Vital Signs Temp 97.8 F 03/14/20 07:28 Pulse 74 03/14/20 10:00 Resp 9 L 03/14/20 10:00 BP 122/76 03/14/20 08:00 Pulse Ox 95 03/14/20 10:00 03/13/20 03/14/20 03/14/20 22:59 06:59 14:59 Intake Total 1590 / 1590 1945.833 / 3535.833 1107.5 / 1107.5 Output Total 600 / 600 400 / 1000 Balance 990 / 990 1545.833 / 2535.833 1107.5 / 1107.5 Weight last 48 hrs Weight 119.884 kg Weight 113.398 kg Physical Exam Const: COMMON NORMALS: patient oriented x3 HENMT: COMMON NORMALS: normocephalic, atraumatic, hearing grossly normal bilaterally and external ears normal HEAD & SCALP: normocephalic and atraumatic EXTERNAL EAR: Yes external ears normal Eye: COMMON NORMALS: no scleral icterus GENERAL EYE: appearance normal, both eyes and all related structures Chest: COMMONS NORMALS: normal inspection of the chest and normal palpation of entire chest wall CHEST: Yes Symmetrical chest wall rise Resp: COMMON NORMALS: normal respiratory effort, No retractions, No use of accessory muscles and clear to auscultation bilaterally EFFORT & INSPECTION: Yes symmetric chest movement AUSCULTATION: clear to auscultation bilaterally Cardio: COMMON NORMALS: regular rate, regular rhythm, S1 normal heart sound present, S2 normal heart sound present, No gallops present (Cardio), No murmurs present (Cardio), No rub (Cardio) and Peripheral pulses 2+ throughout RATE: regular rate RHYTHM: regular rhythm HEART SOUNDS: S1 normal heart sound present and S2 normal heart sound present PERIPHERAL PULSES: Peripheral pulses 2+ throughout GI: COMMON NORMALS: Normal to inspection, nondistended, normoactive bowel sounds present, Soft to palpation, non-tender, No hepatosplenomegaly present and no masses AUSCULTATION: Yes normoactive bowel sounds PALPATION: Yes Soft to palpation and Yes No hepatosplenomegaly present RECTAL EXAM: Yes deferred : COMMON NORMALS: Yes no CVA tenderness BLADDER/KIDNEY EXAM: Yes no CVA tenderness Back/Pelvis: COMMON NORMALS: no CVA tenderness Extremity: COMMON NORMALS: no clubbing, cyanosis or edema and no pedal edema Neuro: COMMON NORMALS: patient oriented x3 Data : 03/14/20 04:37 03/14/20 04:37 A&P Assessment and plan (1) Hypercalcemia: Patient has known prior h/o of hypercalcemia of malignancy and has received both Zoledronic acid as well Denosumab (RANK inhibitors in the past ) Current plan: Calcitonin 450 u SC * 1 Dose Zoledronic acid ( Reclast ) * 1 dose Has got 1 l BOLUS n.s Currently on 150 cc N.S /HR Monitor I/O Monitor CMP Intact PTH Status: Acute (2) MEÑO (acute kidney injury): MEÑO V/S MEÑO ON CKD SCR: 2.2 Baseline SCR is unkown SCR has trended down to 1.7 today in am Continue I.V Hydration Status: Acute (3) Bradycardia: Asymptomatic Sinus Bradycardia likely 2/2 to electrolytes abnormality has resolved H.R has remanied above 60/min Tele Status: Acute (4) Hypertension: Currently Normotensive Monitor B/P Status: Acute (5) Metastatic renal cell carcinoma: No acute intervention for now Status: Acute Qualifiers: Laterality: right Qualified Code(s): C64.1 - Malignant neoplasm of rig ht kidney, except renal pelvis (6) Bone metastases: Pain Control Status: Acute Additional A&P Information DVT PPX: Heparin 5000 U SC Q12 H DAILY Code Status :Full code Disposition : Home Attestations Medical Necessity Statement*: Patient needs to be in hospital for the management of severe symptomatic hypercalcemia of malignancy Coding Level of Care Code Acute 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
[2020-03-14] MEDS: pantoprazole DR 40 mg Tablet PO (11:06)
--- NOTE | 2020-03-14 12:56 | PC.NURSE ---
verbal order received from Dr Torrez for 20mg of lasix now
--- NOTE | 2020-03-14 13:07 | PC.CHAP ---
Pastoral Care Encounter/Spiritual Assessment Type of Contact [] Declined nutrition services aide visit [] Patient/Family/Request visit [] Outpatient visit [] Follow-up visit [] Physician referral [] Code/Alert [xx] Routine visit [] Staff referral [] Actively dying [] Patient sleeping [] Family support [] [] Out of room [] Palliative care [] [] Receiving care in room [] Pre-surgical visit [] Trauma [] Long length of stay [] ICU visit [] Other: Relational/Emotional Strength [xx] Patient feels connected with others/family/visitors/staff [] Distress [] Loneliness/isolation [] Abandonment Spirituality of Patient [] Person of Candida [] Attends Caodaism of their Candida [xx] Believes in Prayer [] Reads Bible or Judaism materials [] There are Spiritual issues to be addressed Industrial 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 Interventions [xx] Prayer [xx] Active listening [xx] Non-anxious presence [] Spiritual/emotional support [] Crisis/trauma care [] Spiritual counseling [] Bereavement support [] Provided bereavement packet [xx] Provided Bible/devotional materials [] Provided toy/stuffed animal, coloring book to patient or family member [] Provided Communion [] Anointing/Brainard [] Salvation [xx] Completed spiritual assessment [] Other: Impact on Illness or Injury [] Angry [] Fearful [] Anxious [] Often cries [] Exhaustion [] Unable to work [] Unable to attend latter day [] Unable to walk/stand [] Unable to read [] Unable to drive [] Unable to eat/drink [] Unable to sleep [] Unable to be with family [] Patient intubated [] Other: Summary Pt wanted prayer only and no real conversation. Time spent with patient 3 minutes
[2020-03-14] MEDS: sodium chloride 0.9% 1,000 ML 150 ML IV (13:13)
[2020-03-14] MEDS: FUROsemide 10 mg/mL SDV 2mL 20 MG IVP (13:13)
[2020-03-14] MEDS: oxyCODONE-APAP 10-325 mg Tablet 1 TAB PO (13:43)
[2020-03-14] MEDS: morphine 4 mg/mL SDV 1 mL 2 MG IVP (20:47)
[2020-03-14] MEDS: temazepam 15 mg Capsule 30 MG PO (20:48)
[2020-03-15] VITALS (14 sets, daily range): BP systolic 110–159; BP diastolic 78–103; PULSE 78–95; RESP 16–28; TEMP 36.4–36.9; O2SAT 92–98
[2020-03-15] MEDS: sodium chloride 0.9% 1,000 ML 150 ML IV ×3 (00:54→08:15)
[2020-03-15] MEDS: oxyCODONE-APAP 10-325 mg Tablet 1 TAB PO ×2 (00:57→11:18)
[2020-03-15] MEDS: HYDROmorphone 1 mg/mL INJ 1 mL 2 MG IVP ×2 (02:56→08:15)
--- NOTE | 2020-03-15 03:24 | PC.NURSE ---
NURSING NOTE: RE: PAIN PT C/O PAIN ALL SHIFT. RATES PAIN AT 9/10 ON PAIN SCALE AND STATES THAT PAIN IS NOT JUST IN HIS SIDE ANYMORE BUT ALL OVER . PLACED CALL TO DR. JIMENEZ AND RECEIVED ORDERS FOR DILAUDID 2MG IV, Q4H PRN. 1ST DOSE GIVEN AT 0256 THIS MORNING. PATIENT STATED THAT MEDICATION IS EFFECTIVE AND HE IS FEELING RELIEF. ALL VS AND ASSESSMENTS CHARTED. WILL CONTINUE TO MONITOR.
[2020-03-15 05:29] LABS: Basophils % 0.4 %; Eosinophils # 0.2 10^3/uL (0.0-0.8); Eosinophils % 2.2 %; Hematocrit 40.3 % (42.0-52.0); Hemoglobin 12.7 g/dL (11.7-16.6); Lymphocytes # 1.5 10^3/uL (0.8-4.8); Lymphocytes % 15.8 %; Mean Corpuscular HGB Conc 31.5 g/dL (30.0-36.0); Mean Corpuscular Hemoglobin 27.7 pg (28.0-34.0); Mean Platelet Volume 9.7 fL (7.4-10.4); Monocytes # 0.8 10^3/uL (0.2-0.9); Monocytes % 8.3 %; Neutrophils # 7.08 10^3/uL (1.8-7.7); Neutrophils % 72.9 %; Nucleated Red Blood Cells % 0 %; Platelet Count 240 10^3/cmm (130-400); Red Blood Count 4.58 10^6/uL (4.1-5.3); Red Cell Distribution Width 13.4 % (12.1-15.1); White Blood Count 9.7 10^3/uL (4.0-10.0)
[2020-03-15 05:53] LABS: Alanine Aminotransferase 10 U/L (0-41); Albumin Level 3.1 g/dL (3.5-5.2); Alkaline Phosphatase 124 IU/L (40-130); Anion Gap 13.2 (5-19); Aspartate Amino Transferase 22 U/L (0-40); Blood Urea Nitrogen 16 mg/dL (6-20); Calcium 10.7 mg/dL (8.5-10.5); Carbon Dioxide 22 mmol/L (22-29); Chloride 106 mmol/L (98-107); Globulin 3.5 g/dL (1.3-4.6); Glomerular Filtration Rate 63.8 mL/min (90-130); Glucose 86 mg/dL (65-115); Magnesium 1.2 mg/dL (1.7-2.3); Osmolality Calculated 286 mOsm/kg (285-295); Phosphorus 1.2 mg/dL (2.5-4.5); Potassium 3.2 mmol/L (3.5-5.1); Sodium 138 mmol/L (136-145); Total Bilirubin 0.5 mg/dL (0.15-1.2); Total Protein 6.6 g/dL (6.6-8.7)
[2020-03-15] MEDS: sertraline 50 mg Tablet PO (08:14)
[2020-03-15] MEDS: docusate sodium 100 mg Capsule PO ×2 (08:15→17:35)
[2020-03-15] MEDS: atorvastatin 40 mg Tablet PO (08:15)
[2020-03-15] MEDS: pantoprazole DR 40 mg Tablet PO (08:15)
[2020-03-15] MEDS: aspirin 81 mg EC Tablet PO (08:15)
[2020-03-15] MEDS: heparin 5,000 unit/mL INJ 1 mL 5000 UNIT SUBCUT (08:16)
--- NOTE | 2020-03-15 08:52 | PM.PN ---
Subjective Subjective: Interval history: Patient has been doing well. Since calcium levels have improved, heart rates are much better. He is in sinus rhythm. No complaints of chest pain, shortness of breath or palpitations. Vitals/I&O/Wt Last Vital Signs Temp 97.6 F 03/15/20 07:30 Pulse 86 03/15/20 07:30 Resp 24 H 03/15/20 08:15 BP 151/91 03/15/20 07:30 Pulse Ox 93 03/15/20 08:15 03/14/20 03/15/20 03/15/20 22:59 06:59 14:59 Intake Total 2360 / 3827.5 615 / 4442.5 907.5 / 907.5 Output Total 700 / 700 950 / 1650 Balance 1660 / 3127.5 -335 / 2792.5 907.5 / 907.5 Weight last 48 hrs Weight 265 lb Weight 264 lb 4.8 oz Weight 250 lb Physical Exam Narrative: EXAM NARRATIVE: GENERAL: Patient is alert, awake and oriented x3. [] NECK: No jugular vein distension. [] HEENT: No cyanosis. No icterus. No pallor. [] HEART: Regular S1 and S2. No murmur, rub or gallop. [] LUNGS: Clear to auscultate bilaterally. [] ABDOMEN: Soft, nontender and nondistended. Positive bowel sounds. No guarding, rebound or tenderness. [] CENTRAL NERVOUS SYSTEM: Grossly nonfocal. [] EXTREMITIES: Lower extremities with no edema bilaterally. Pulses palpable in the lower extremities, both dorsalis pedis and posterior tibial. [] Data : 03/15/20 04:25 03/15/20 04:25 A&P Assessment and plan (1) Bradycardia: (2) Hypertension: (3) Hypercalcemia: (4) Bone metastases: (5) Metastatic renal cell carcinoma: Qualifiers: Laterality: right Qualified Code(s): C64.1 - Malignant neoplasm of right kidney, except renal pelvis Patient's bradycardia was related to electrolyte abnormalities and has resolved since electrolyte abnormalities have improved. Avoid rate limiting medications Tele monitoring Thank you for involving us with the care of this patient. We will follow patient. Please call with questions Attestations Medical Necessity Statement*: Care expected to cross 2 midnights. Coding Level of Care Code Acute Is Project Manager for Chg Fwd Diagnoses Bradycardia R00.1 Hypertension I10 Hypercalcemia E83.52 Bone metastases C79.51 Metastatic renal cell carcinoma C64.1 Laterality: right
--- NOTE | 2020-03-15 10:25 | CT_ITS ---
WS: [id number] CT CHEST TECHNIQUE: Noncontrast CT of the chest with coronal and sagittal reformatted images. CLINICAL INFORMATION: SOB COMPARISON: CT chest August 24, 2019 DLP: 955.[address] scans at [facility] use at least one of these dose optimization techniques: automat ed exposure control; mA and/or kV adjustment per patient size (includes targeted exams where dose is matched to clinical indication); or iterative reconstruction. FINDINGS: Mild chronic emphysematous changes. No acute pulmonary infiltrates. Subsegmental atelectasis in the r ight middle lobe and right greater than left lower lobes. Chronic pleural thickening. No focal pneumo ree. No acute-appearing pulmonary infiltrates. No significant pleural fluid. No mediastinal or hilar lymphadenopathy. Aortic calcification. Coronary calcification. No axillary ly mphadenopathy. Hepatomegaly with metastatic disease. Adrenal glands are normal. Multiple lytic lesions visualized th roughout the spine and visualized bony structures consistent with metastatic disease. Metastatic Soft tissue paravertebral components more prominent in the upper thoracic spine. This is most prominent a t T2 with soft tissue component measuring 2.2 x 2.7 cm. Destructive soft tissue lesions involving the right greater than left ribs with expansile soft tissue components. This is worse at the seventh and ninth ribs. Multiple chronic right rib fractures. CT/CT chest wo con 50213 IMPRESSION: 1. No acute pulmonary infiltrates. No focal pneumonia. 2. Subsegmental atelectasis in the right middle lobe and right greater than le ft lower lobe with chronic pleural thickening. 3. Mild chronic emphysematous changes. 4. Numerous lytic lesions visualized throughout the axial and appendicular ske leton consistent with metastatic disease. 5. Lytic metastatic lesions in the upper thoracic spine with soft tissue parav ertebral components more prominent at T2 measuring 2.7 x 2.2 CM. 6. Hepatomegaly with hepatic metastasis partially visualized in the noncontras t liver
[2020-03-15] MEDS: FUROsemide 10 mg/mL SDV 2mL 20 MG IVP (11:17)
[2020-03-15] MEDS: potassium chloride ER 10 mEq Tablet 40 MEQ PO (11:18)
--- NOTE | 2020-03-15 12:03 | PM.DCS ---
Discharge Providers Date of Admission: 03/13/20 17:39 Date of Discharge: March 15, 2020 Attending Provider at Admission: Elmer Torrez MD Attending Provider at Discharge: Elmer Torrez MD Diagnoses at Discharge Discharge Diagnosis (1) Hypercalcemia: Status: Resolved (2) MEÑO (acute kidney injury): Status: Resolved (3) Bradycardia: Status: Resolved (4) Hypertension: Status: Chronic (5) Metastatic renal cell carcinoma: Status: Chronic Qualifiers: Laterality: right Qualified Code(s): C64.1 - Malignant neoplasm of right kidney, except renal pelvis (6) Bone metastases: Status: Chronic Reason for Visit Reason for Visit: Fatigue/Confusion/Body Aches Hospital Course Hospital Course 49-year-old gentleman with PMH of metastatic renal cell carcinoma diagnosed on June 07, 2018 ( liver biopsy which confirmed poorly differentiated carcinoma, consistent with renal primary ),HTN was admitted with c/o confusion, lethargy, constipation for the last 2 days.Upon arrival in the ER CMP has shown Corrected Serum Calcium of : 15.4. as well as SCR of 2.2.He was admitted for the management of severe symptomatic hypercalcemia of malignancy as well as MEÑO 2/2 to severe volume depletion 2/2 to hypercalcemia.He was given calcitonin as well as zoledronic acid on the day of admission and was kept on aggressive I.V hydration.He received 2 dose 0f lasix 20 mg I.V to prevent volume overload as lasix for most part has no benefit in hypercalcemia management per say. He responded well to the above medical management and at the time of discharge,he was in stable condition. Imaging studies: Xray Chest : Probable chest wall metastasis involving the right posterior lateral. C.T Chest without Contrast: 1. No acute pulmonary infiltrates. No focal pneumonia. 2. Subsegmental atelectasis in the right middle lobe and right greater than left lower lobe with chronic pleural thickening. 3. Mild chronic emphysematous changes. 4. Numerous lytic lesions visualized throughout the axial and appendicular skeleton consistent with metastatic disease. 5. Lytic metastatic lesions in the upper thoracic spine with soft tissue paravertebral components more prominent at T2 measuring 2.7 x 2.2 CM. 6. Hepatomegaly with hepatic metastasis partially visualized in the noncontrast liver Admission EKG: SINUS BRADYCARDIA and corrected ( QTc: 394 ).Likely 2/2 to hypercalcemia. With hypercalcemia correction sinus bradycardia was resolved. Physical Exam Const: COMMON NORMALS: patient oriented x3 HENMT: COMMON NORMALS: normocephalic, atraumatic, hearing grossly normal bilaterally and external ears normal HEAD & SCALP: normocephalic and atraumatic EXTERNAL EAR: Yes external ears normal Eye: COMMON NORMALS: no scleral icterus GENERAL EYE: appearance normal, both eyes and all related structures Chest: COMMONS NORMALS: normal inspection of the chest and normal palpation of entire chest wall CHEST: Yes Symmetrical chest wall rise Resp: COMMON NORMALS: normal respiratory effort, No retractions, No use of accessory muscles and clear to auscultation bilaterally EFFORT & INSPECTION: Yes symmetric chest movement AUSCULTATION: clear to auscultation bilaterally Cardio: COMMON NORMALS: regular rate, regular rhythm, S1 normal heart sound present, S2 normal heart sound present, No gallops present (Cardio), No murmurs present (Cardio), No rub (Cardio) and Peripheral pulses 2+ throughout RATE: regular rate RHYTHM: regular rhythm HEART SOUNDS: S1 normal heart sound present and S2 normal heart sound present PERIPHERAL PULSES: Peripheral pulses 2+ throughout GI: COMMON NORMALS: Normal to inspection, nondistended, normoactive bowel sounds present, Soft to palpation, non-tender, No hepatosplenomegaly present and no masses AUSCULTATION: Yes normoactive bowel sounds PALPATION: Yes Soft to palpation and Yes No hepatosplenomegaly present RECTAL EXAM: Yes deferred Extremity: COMMON NORMALS: no clubbing, cyanosis or edema and no pedal edema Neuro: COMMON NORMALS: patient oriented x3 Discharge Data Data Completed and Pending: Completed Studies During Hospitalization Category Date Time Status XR chest 2V* 7104 6 Urgent Exams 03/13/20 14:38 Completed Pending at discharge Category Date Time Status CT chest wo con 7 1250 Stat Cat Scan 03/15/20 10:25 Taken Complete Blood Co unt w/Auto AM LABS Lab 03/16/20 04:00 Ordered Comprehensive Met abolic Panel AM LA BS Lab 03/16/20 04:00 Ordered Magnesium AM LABS Lab 03/16/20 04:00 Ordered Phosphorus AM LAB S Lab 03/16/20 04:00 Ordered Labs from last 24 hours 03/15/20 03/15/20 04:25 04:25 WBC 9.7 RBC 4.58 Hgb 12.7 Hct 40.3 L MCV 88.0 MCH 27.7 L MCHC 31.5 RDW 13.4 Plt Count 240 MPV 9.7 Neut % (Auto) 72.9 Lymph % (Auto) 15.8 [place] % (Auto) 8.3 Eos % (Auto) 2.2 Baso % (Auto) 0.4 Neut # (Auto) 7.08 Lymph # (Auto) 1.5 [place] # (Auto) 0.8 Eos # (Auto) 0.2 Baso # (Auto) 0.0 Nucleated RBC % (a uto) 0 Nucleated RBCs # 0.0 Sodium 138 Potassium 3.2 L Chloride 106 Carbon Dioxide 22 Anion Gap 13.2 BUN 16 Creatinine 1.2 GFR Calculation 63.8 L Glucose 86 Calculated Osmolal ity 286 Calcium 10.7 H Phosphorus 1.2 L Magnesium 1.2 L Total Bilirubin 0.5 AST 22 ALT 10 Alkaline Phosphata se 124 Total Protein 6.6 Albumin 3.1 L Globulin 3.5 Vitals: Last Vital Signs Temp 97.6 F 03/15/20 11:13 Pulse 85 03/15/20 11:13 Resp 21 H 03/15/20 11:18 BP 159/103 03/15/20 11:13 Pulse Ox 94 03/15/20 11:18 Discharge Plan Discharge Patient Disposition: Home Condition: Stable Prescriptions: Continued aspirin [Enteric Coated Aspirin] 81 mg tablet,delayed release (DR/EC) 81 mg PO DAILY RF: 0 atorvastatin 40 mg tablet 40 mg PO DAILY RF: 0 clonidine HCl 0.1 mg tablet 0.1 mg PO BID RF: 0 hydralazine 50 mg tablet 50 mg PO BID RF: 0 metoprolol tartrate 100 mg tablet 100 mg PO BID RF: 0 nifedipine 60 mg tablet extended release 60 mg PO DAILY RF: 0 omeprazole 20 mg capsule,delayed release(DR/EC) 20 mg PO DAILY RF: 0 ondansetron HCl 4 mg tablet 4 mg PO DAILY PRN (Reason: N/V) RF: 0 sertraline 50 mg tablet 50 mg PO DAILY RF: 0 temazepam 30 mg capsule 30 mg PO .HS RF: 0 methocarbamol 500 mg tablet 500 mg PO TID RF: 0 diclofenac sodium [Voltaren] 1 % gel 2 gm TOPICAL QID RF: 0 Opdivo 240 mg/24 mL solution 240 mg IVP .BIWEELY RF: 0 naloxone 4 mg/actuation spray,non-aerosol 4 mg INTRANASAL Q3M PRN (Reason: opioid overdose) Qty: 2 RF: 0 morphine 30 mg tablet,oral only,extnd release 30 mg PO Q12H 30 Days Qty: 60 RF: 0 hydrocodone-acetaminophen 5-325 mg tablet 1 tab PO BID PRN (Reason: pain (scale score 7-10)) 30 Days Qty: 60 RF: 0 naloxegol 25 mg tablet 25 mg PO QAM Qty: 30 RF: 0 Held lisinopril 40 mg tablet 40 mg PO DAILY RF: 0 Hold Instructions: Resume on 03/19/20. Discharge Orders: Discharge Order (Routine); Ordered 03/15/20 Ordered By: Elmer Torrez Referrals: [facility] [Other] - 4-7 days (AILIN GOMEZ [facility] [phone] SUNDAY MARCH 22, 2020 @ 1100AM FEEL FREE TO CALL & CHANGE APPOINTMENT TIME IF NOT A CONVENIENT TIME.) Isabell Ochoa MD [Staff Physician] - 2 months (MAKE FOLLOW UP APPOINTMENTS NEEDED WITH DR OCHOA. 03/19/20 NUCLEAR MEDICINE BONE SCAN PREVIOUSLY SCHEDULED.) Discharge Diet: Low Salt Discharge Activity: Increase activity as tolerated Discharge Attestations Time Spent in Discharge Care*: greater than 30 min Specific Discharge Activities: educating patient, educating and/or supporting family/caregiver, discussing with pcp/other providers, discussing with leather case finisher/social workers/dc planners, documenting/other paperwork and evaluating patient/reviewing data Status at Discharge: Cognitive status at discharge: cognitively intact, Behavioral status at discharge: cooperative, Functional status at discharge: independent ambulation Overall status at discharge: patient is back to baseline Quality Metrics Clinical Quality Measures During this hospital stay, did patient experience: None Coding Level of Care Code Acute Corporate Director Of Pharmacy for Chg Fwd Diagnoses Hypercalcemia E83.52 MEÑO (acute kidney injury) N17.9 Bradycardia R00.1 Hypertension I10 Metastatic renal cell carcinoma C64.1 Laterality: right Bone metastases C79.51
[2020-03-15] MEDS: morphine ER (12 HR) 30 mg tablet PO ×2 (12:32→17:34)
--- NOTE | 2020-03-15 17:08 | PC.NURSE ---
Addendum entered by Alejandrina Moscoso RN 03/15/20 17:22: FOLLOW UP WITH DR OCHOA March @ [id number]. THEN WILL HAVE TREATMENT. PT/ NOTIFIED. Original Note: ATTEMPTED TO SCHEDULE[facility]OBTAIN NEXT [facility]. NEVER RECEIVED CALL BACK BEFORE PT DISCHARGE
--- NOTE | 2020-03-15 18:25 | PC.NURSE ---
PRIOR TO DISCHARGE DR POPE SPOKE WITH PT & HIS . BOLUSED THE REMAINING IVF'S AT 300ML/HR UNTIL BAG EMPTY. WHEELED OUT TO PRIVATE VEHICLE. WISHED WELL. GIVEN DISCHARGE INSTRUCTIONS & FOLLOW UP APPOINTMENTS WERE SCHEDULED..
== END 2020-03-15 18:15 | disposition home or self-care (01) | DRG 641 ==
LOC: ER 18:39 → CSU 19:02
PROVIDERS: Admitting Provider Internal Medicine; Emergency Provider Family Medicine; Visit Provider Internal Medicine
DX: E83.52 Hypercalcemia (principal); C64.1 Malignant neoplasm of right kidney, except renal pelvis; C79.51 Secondary malignant neoplasm of bone; N17.9 Acute kidney failure, unspecified; I12.9 Hypertensive chronic kidney disease with stage 1 through stage 4 chronic kidney disease, or unspecified chronic kidney disease; N18.9 Chronic kidney disease, unspecified; K59.00 Constipation, unspecified; G89.3 Neoplasm related pain (acute) (chronic); R00.1 Bradycardia, unspecified; Z79.82 Long term (current) use of aspirin; Z79.899 Other long term (current) drug therapy; Z79.891 Long term (current) use of opiate analgesic
CPT/HCPCS: 12345; 36415; 71046; 71250; 80053; 81003; 82310; 82330; 82550; 83690; 83735; 83880; 83970; 84100; 84443; 84484; 85025; 85378; 86140; 93005; 96372; 96375; 99283; J0461; J0630; J1170; J1644; J1940; J2270; J2930; J3489; J7030; J7050

== ENCOUNTER 2020-03-19 08:54 | Outpatient (CLI) | payer OTHER, SELFPAY ==
--- NOTE | 2020-03-19 09:00 | NM_ITS ---
WS: [id number] NUCLEAR MEDICINE WHOLE BODY BONE SCAN HISTORY: RESTAGING EVALUATION, RENAL CANCER COMPARISON: Chest CT 03/15/2020, CT abdomen and pelvis 01/31/2020 TECHNIQUE: The patient was injected with 24.7 mCi of Technetium 99m HDP and serial whole-body scintig fab have been performed with anterior and posterior images. Numerous areas of moderate to severe uptake noted within several of the ribs bilaterally. These rib l esions correspond to abnormality seen on the recent chest CT. There are some rib lesions which are n ot apparent by bone scan imaging. In the proximal RIGHT humeral diaphysis is an area of increased upt jodie suspicious for metastatic lesion. This is also noted on the hospital secretary localizer of the chest CT of . No definite spine lesions are identified. Spine lesions were identified on the prior chest CT. There are multiple lytic destructive lesions noted in the thoracic and upper lumbar spine seen on the recent chest CT. Increased uptake in the LEFT inferior pubic rami and probably the superior RIGH T pubic rami. Focal area of intermediate uptake in the RIGHT superior sacrum. Additional intermediate uptake in the distal LEFT femur. Area of increased uptake in the proximal LEFT tibia. Normal soft tissue uptake. Kidneys are both identified. NM/NM bone scan whole body* [id number] IMPRESSION: 1. Numerous lesions throughout the axial and appendicular skeleton as describe d above. Corresponds to diffuse metastatic disease from the patient's known ran al carcinoma. 2. Vertebral body destructive lytic areas are not positive on the bone scan im aging. Lesions without increased uptake may be from treated disease. 3. Suggest dedicated radiographs of the LEFT humerus, LEFT femur and proximal RIGHT tibia. There are changes of metastatic disease. Additional imaging to cristy luate possibility of pathological fracture development is recommended.
== END 2020-03-19 08:55 | disposition home or self-care (01) ==
LOC: NM 08:57
PROVIDERS: PCP Nurse Practitioner Family; Visit Provider Internal Medicine Hematology & Oncology
DX: C64.1 Malignant neoplasm of right kidney, except renal pelvis (principal); C78.00 Secondary malignant neoplasm of unspecified lung; C79.51 Secondary malignant neoplasm of bone
CPT/HCPCS: 78306; A9561

== ENCOUNTER 2020-03-23 09:17 | Outpatient (CLI) | payer OTHER, SELFPAY ==
[2020-03-23 10:37] LABS: Basophils # 0.1 10^3/uL (0.0-0.1); Basophils % 0.7 %; Eosinophils # 0.3 10^3/uL (0.0-0.8); Eosinophils % 2.9 %; Hematocrit 41.5 % (42.0-52.0); Hemoglobin 13.1 g/dL (11.7-16.6); Lymphocytes # 1.5 10^3/uL (0.8-4.8); Lymphocytes % 17.1 %; Mean Corpuscular HGB Conc 31.6 g/dL (30.0-36.0); Mean Corpuscular Hemoglobin 27.5 pg (28.0-34.0); Mean Corpuscular Volume 87.2 fL (80-94); Mean Platelet Volume 9.5 fL (7.4-10.4); Monocytes # 0.9 10^3/uL (0.2-0.9); Monocytes % 10.5 %; Neutrophils # 6.05 10^3/uL (1.8-7.7); Neutrophils % 68.6 %; Nucleated Red Blood Cells % 0 %; Platelet Count 278 10^3/cmm (130-400); Red Blood Count 4.76 10^6/uL (4.1-5.3); Red Cell Distribution Width 14.4 % (12.1-15.1); White Blood Count 8.8 10^3/uL (4.0-10.0)
[2020-03-23 11:03] LABS: Alanine Aminotransferase 14 U/L (0-41); Albumin Level 3.3 g/dL (3.5-5.2); Alkaline Phosphatase 142 IU/L (40-130); Anion Gap 13.5 (5-19); Aspartate Amino Transferase 21 U/L (0-40); Blood Urea Nitrogen 20 mg/dL (6-20); Calcium 9.5 mg/dL (8.5-10.5); Carbon Dioxide 22 mmol/L (22-29); Chloride 103 mmol/L (98-107); Globulin 3.7 g/dL (1.3-4.6); Glucose 102 mg/dL (65-115); Osmolality Calculated 283 mOsm/kg (285-295); Potassium 3.5 mmol/L (3.5-5.1); Sodium 135 mmol/L (136-145); Total Bilirubin 0.5 mg/dL (0.15-1.2)
--- NOTE | 2020-03-23 13:07 | ONC FU_ITS ---
Dr. Thornton follow up note Patient: Sylvester Ojeda Unit #: [id number]: 1970 Dicatated By: Isabell Thornton M.D.Date of Visit:Mar 23, 2020 Onc Med Follow-up/Prog Note History of Present Illness: Mr. Sylvester Ojeda, is a 49-year-old gentleman with a history of metastatic renal cell carcinoma diagnosed on June 07, 2018 when he underwent liver biopsy which confirmed poorly differentiated carcinoma, consistent with renal primary. As per patient, before diagnosis he was having excessive drowsiness subsequently on June 06, 2018 he was admitted to [facility] in [place] with hypercalcemia at that time he underwent CT scan of chest abdomen pelvis which confirmed right renal mass with multiple lung nodules and liver lesions. Patient also had CT scan of head which was negative for metastatic disease at that time his calcium level was 16.7 with a creatinine 2.77, patient was treated with hydration and also received a dose of Aredia 60 mg. Patient was started on Cabometyx 60 mg p.o. daily on June 18, 2018, and reevaluation on July 02, 2018 showed his creatinine improved to 1.95 from 2.77 but calcium again increased to 14.5 at that time denosumab 120 mg was started on July 02, 2018 and patient developed skin rash and hypertension due to Cabometyx and on September 08, 2018 his Cabometyx dose was decreased to 40 mg p.o. daily due to related side effects. Which he tolerated better and then on December 01, 2018 he went to hospital with shortness of breath CT angio PE protocol revealed moderate sized pleural effusion, thoracentesis was performed and due to recurrent pleural effusions patient had chest tube placed on January 05, 2019. And his Cabometyx was discontinued. Patient was started on Yervoy/Opdivo on on January 28, 2019 and received 3 cycles and it was discontinued because of elevated bilirubin. Patient was treated with steroid for his abnormal LFTs with return to normal. Patient was placed back on single agent Opdivo every 2 weeks on May 2019, which he tolerated well his follow-up CT scan of chest abdomen pelvis done on November 16, 2019 showed 1.3 x 0.9 cm right lower lobe nodule previously measured 1.2 x 0.9., Adjacent right lower lobe nodule is unchanged. 0.6 cm. Segment left lower lobe nodules unchanged. 1 x 0.9 cm perifissural nodule in the middle lobe is unchanged. No new or enlarging dominant nodules or masses seen. Atelectasis or scarring of right base is seen. Mediastinum and chidi showed right paratracheal node measuring 1.4 cm compared to 1.1 cm on previous study subcarinal node measuring up to 1.7 cm compared to 0.6 cm on prior study. An additional 1.8 cm subcarinal lymph node is present as well. 1.5 cm right hilar node previously measured 1.3 cm. 1.7 cm right hilar node previously measured 1.6 cm. Liver showed ill-defined segment 7 lesion measuring up to 2.6 cm which is similar to prior study and remaining bilateral hepatic metastatic disease appears similar to prior. No new lesions seen. Bone shows multiple old right rib fractures. No suspicious sclerotic or lytic bone lesion seen. Patient continue with biweekly Opdivo and follow-up CT scan of chest abdomen pelvis done on January 31, 2020 showed with the exception of smaller subcarinal lymph node the other enlarged mediastinal lymph nodes are unchanged. Stable pulmonary nodules. Stable hepatic metastatic disease. Stable lobulated mass in the right kidney. Now seen are multiple lytic lesions within the pelvis, sacrum, thoracic and lumbar spine and ribs bilaterally.Patient decided to move to [place] from [place], and Started on biweekly Opdivo on March 01, 2020 Bone scan done on March 19, 2020 shows numerous areas of moderate to severe uptake within several ribs bilaterally in the proximal right humerus is an area of increased uptake suspicious for metastatic disease. No definite spinal lesions are identified. But spinal lesions were identified on the prior CT chest. There are multiple lytic destructive lesion noted in the thoracic and lumbar spine. Increased uptake in the left inferior pubic rami and superior right pubic rami. Focal area of intermediate uptake in the right superior sacrum. Additional intermediate uptake in the distal left femur and area of increased uptake in the left tibia Came for follow-up, denies any specific complaint except constipation, and patient said last week he went to hospital with mental status changes and was diagnosed with hypercalcemia treated with IV fluids and also given Reclast with that his calcium improved and his mental status also improved. And he had bone scan done on March 19, 2020, is here to discuss, no fever chills, no nausea or vomiting no diarrhea or constipation, no hemoptysis or hematemesis, no hematuria no headaches blurred vision or double vision Medications: Aspirin Adult Low Dose 1 Tablet (of 81 mg) Tablet, enteric coated Oral daily, Atorvastatin Calcium 1 Tablet (of 40 mg) Oral daily, cloNIDine HCl 1 Tablet (of 0.1 mg) Oral b.i.d., hydrALAZINE HCl 1 Tablet (of 50 mg) Oral b.i.d., HYDROcodone-Acetaminophen Tablet Oral PRN, Lisinopril 1 Tablet (of 40 mg) Oral daily, Methocarbamol Tablet Oral, Metoprolol Tartrate 1 Tablet (of 100 mg) Oral b.i.d., Morphine Sulfate ER 1 Tablet (of 30 mg) Tablet, controlled release Oral b.i.d., NIFEdipine ER 1 Tablet (of 60 mg) Tablet SR 24 HR Oral daily, Omeprazole 1 Tablet (of 20 mg) Tablet, enteric coated Oral daily, Ondansetron HCl Tablet Oral, Sertraline HCl 1 Tablet (of 50 mg) Oral daily, Temazepam 1 Capsule (of 30 mg) Oral daily Allergies: No Known Allergies. Review of Systems: Review of Systems is not available for this patient. Vital Signs: Performed on Mar 23, 2020 11:18 Height - 66.00 in Weight - 258.4 lbs (LOW) BSA - 2.23 sq.m BMI - 41.71 (HIGH) Temperature - 97.5 F (LOW) Pulse - 55 /min (LOW) Respiration - 20 /min BP - 119/73 mm(hg) O2 Sat - 95 % (LOW) Pain - 7 Performance Status: 0 - Fully active, able to carry on all predisease activities without restrictions. (ECOG) Physical Examination: ENMT - No mouth sores, no thrush, no jaundice, Respiratory - Lungs are clear to auscultation, Cardiovascular - Regular rate and rhythm of heart, Abdomen - Soft, bowel sounds present, Extremities - No visible edema. Lab/Imaging: Most recent lab results are not available for this patient. Impression: Metastatic renal cell carcinoma with extensive mets involving bilateral lungs, mediastinum as well as liver and primary in the right kidney, diagnosed in June 2018 per liver biopsy, initially treated with Cabometyx, patient developed side effect like hypertension and skin reaction, Cabometyx dose was reduced to 40 mg p.o. daily from 60 mg, subsequently patient admitted to hospital with progressive pleural effusion which was drained, due to recurrence required chest tube placement. Cabometyx was discontinued in November 2018, he was started on Yervoy/Opdivo on January 28, 2019, patient received 3 doses of immunotherapy but then presented with elevated bilirubin, he was treated with steroids and changed to biweekly Opdivo alone on May 2019. Follow-up CT scan of chest abdomen pelvis done on January 31, 2020 showed stable disease in the lung and liver but no progressive bone mets.^ ]Bone scan done on March 19, 2020 showed numerous lesions throughout the axial and appendicular skeleton. Vertebral body destructive lytic lesions are not positive on bone scan. Plan: Discussed with patient regarding his labs white blood count 8.8 hemoglobin 13.1 hematocrit 41.5 platelets 278,000 CMP within normal limit except creatinine 1.8 and bone scan findings which showed extensive bone mets Clinically, patient doing well with no new signs symptom except recent hospitalization with hypercalcemia probably due to extensive bone mets, patient was given dose of Reclast and today's labs shows calcium in normal range and mild renal insufficiency. Bone scan findings were discussed with patient, patient denies any new bony pains but complaining of pain in the right shoulder and right ribs, chronic back pain, no lower extremity weakness or numbness his pain is under control with current pain medication managed by pain clinic We will proceed with the next dose of nivolumab today and then return to clinic in 2 weeks with CBC CMP and will also consider x-ray of left humerus, femur and tibia as recommended by radiologist. And with mild renal insufficiency, will consider starting him on Xgeva 120 mg monthly to prevent cancer related complication. As far as constipation is concerned patient was advised to try milk of magnesia/prune juice Signed By: Isbaell Thornton M.D. <<Signature on File>>
== END 2020-03-23 09:18 | disposition home or self-care (01) ==
PROVIDERS: PCP Nurse Practitioner Family; Visit Provider Internal Medicine Hematology & Oncology
DX: Z51.12 Encounter for antineoplastic immunotherapy (principal); C64.1 Malignant neoplasm of right kidney, except renal pelvis; C78.7 Secondary malignant neoplasm of liver and intrahepatic bile duct; C78.01 Secondary malignant neoplasm of right lung; C78.02 Secondary malignant neoplasm of left lung; C78.1 Secondary malignant neoplasm of mediastinum; C79.51 Secondary malignant neoplasm of bone; E83.52 Hypercalcemia; N28.9 Disorder of kidney and ureter, unspecified; K59.00 Constipation, unspecified; M25.511 Pain in right shoulder; R07.81 Pleurodynia; Z79.899 Other long term (current) drug therapy
CPT/HCPCS: 36415; 80053; 85025; 96413; 99214; J7050; J9299

== ENCOUNTER 2020-03-26 10:30 | Emergency (ER) | payer OTHER, SELFPAY ==
[2020-03-26 10:39] VITALS: BP 125/76; PULSE 46; RESP 14; TEMP 36.6; O2SAT 96; BMI 41.8
--- NOTE | 2020-03-26 10:47 | XR_ITS ---
WS: [id number] XR chest 1V portable [id number] REASON FOR EXAM: chest pain FINDINGS: Patient has diffuse bony metastatic disease versus multiple myeloma with multiple lytic rib lesions. On the previous examination there was a moderate sized extrapleural mass associated with a lesion of the right seventh rib laterally noted on previous examination 03/13/2020. This extrapleural mass is s maller at this time. There continue to be multiple areas of linear atelectasis in the right lung base . No new findings. XR/XR chest 1V portable [id number] IMPRESSION: Patient with bony metastatic disease including the ribs. Right extrapleural mas s has decreased in size compared to the previous examination of 03/13/2020. The decrease in size of the extrapleural mass suggests that it was in part due to hematoma.
--- NOTE | 2020-03-26 10:48 | ECG_ITS ---
[facility] Test Date: 2020-03-26 Pat Name: Sylvester Ojeda Department: Room: Gender: Male Whale Fisherman: JESSIE : 1970 Requested By: Faheem Harris Order Number: [id number] Jack MD: Robi Powell M.D. Measurements Intervals [place] Rate: 46 P: -14 [place]: 139 QRS: -70 QRSD: 186 T: 18 QT: 501 QTc: 442 Interpretive Statements SINUS BRADYCARDIA RIGHT BUNDLE BRANCH BLOCK [120+ ms QRS DURATION, UPRIGHT V1, 40+ ms S IN I/aVL/V4/V5/V6] LEFT ANTERIOR FASCICULAR BLOCK [QRS AXIS <= -45, QR IN I, RS IN II] Compared to ECG 03/13/2020 21:16:21 Myocardial infarct finding no longer present Electronically Signed On 03-26-2020 16:37:49 DREDGE MASTER by Robi Powell M.D. [id number]
[2020-03-26 10:50] VITALS: BP 126/82; PULSE 52; RESP 16; O2SAT 95
--- NOTE | 2020-03-26 10:54 | W.ED.CHESTPA ---
HPI - Chest Pain General: Chief Complaint: Chest Pain Stated Complaint: SOB/CHEST PRESSURE Time Seen by Provider: 03/26/20 10:47 History of Present Illness: HPI narrative: 49-year-old male presents to the emergency room with complaint of chest pain. Patient was hospitalized a week ago with an acute kidney injury as well as bradycardia. He has a history of disseminated renal cell CA that he is still undergoing treatment through Dr. Norberto hidalgo. He received treatment last week he is on an every other week treatment program. He states he has had chest discomfort since he was discharged about a week ago he has not noticed any association with exertion with this chest pain. He does notice when he takes a deep breath that is worse. He is not had any hemoptysis he is not had any significant shortness of breath. Denies any other recent GI or symptoms or flulike symptoms. Pain radiates into his back but not into his shoulders or neck. He has not been nauseous with it. He states he had a sestamibi stress test done about a year ago in [facility] which was negative. MD complaint: chest pain Onset (ago): day(s) (-) Timing of current episode: constant Prior episodes: Yes Onset: during rest Pain location: left chest Pain radiation: back Severity: moderate Quality: aching and heaviness Relieving factors: rest Exacerbating factors: inspiration Associated symptoms: Deny abdominal pain, dyspnea, fever(s), nausea or vomiting Treatment prior to arrival: none Review of Systems Const: Denies: fever(s), chills, body aches, change in appetite, fatigue or malaise ENMT: Denies: throat pain, ear or mastoid pain, nasal discharge or nasal congestion Card: Denies: chest pain, edema, dyspnea on exertion or orthopnea Resp: Denies: dyspnea, productive cough or non-productive cough GI: Denies: abdominal pain, nausea, vomiting, hematemesis, coffee ground emesis, diarrhea, constipation, bloating, hematochezia or melena : Denies: flank pain, dysuria, urinary frequency or urinary urgency Skin/Breast: Denies: rash or pruritus PFSH ED PFSH: Medical History MEÑO (acute kidney injury) Bone metastases Bradycardia Resolved Cancer determined by renal biopsy Hypercalcemia Hypertension Metastatic renal cell carcinoma Family History Father Diabetes Mother Cancer Social History Smoking and tobacco status: never smoked Second hand smoke exposure: No Alcohol intake: former History of recent travel: No Physical Exam Const: COMMON NORMALS: no acute distress GENERAL APPEARANCE: cooperative and comfortable ORIENTATION/CONSCIOUSNESS: Yes awake, Yes oriented to person, Yes oriented to place and Yes oriented to time HENMT: COMMON NORMALS: normocephalic, atraumatic and hearing grossly normal bilaterally HEAD & SCALP: normocephalic and atraumatic Eye: COMMON NORMALS: Equal, round and reactive pupils present, EOMs intact bilaterally, conjunctivae normal and no scleral icterus CONJUNCTIVA: Yes conjunctivae normal PUPIL: Yes Equal, round and reactive pupils present Neck/C-Spine: COMMON NORMALS: full ROM, no lymphadenopathy, supple and no JVD Lymph: LYMPHATIC: no lymphadenopathy noted and no lymphedema noted Resp: COMMON NORMALS: normal respiratory effort, No retractions, No use of accessory muscles and clear to auscultation bilaterally AUSCULTATION: clear to auscultation bilaterally Cardio: COMMON NORMALS: no JVD, regular rate, regular rhythm and No murmurs present (Cardio) RATE: regular rate RHYTHM: regular rhythm GI: COMMON NORMALS: Soft to palpation and No hepatosplenomegaly present AUSCULTATION: Yes normoactive bowel sounds PALPATION: Yes Soft to palpation, No Tenderness to palpation present (GI), No Guarding due to palpation present (GI) and Yes No hepatosplenomegaly present Extremity: COMMON NORMALS: normal to inspection, capillary refill normal, no clubbing, cyanosis or edema, no calf tenderness and no pedal edema Neuro: SENSORIUM/ORIENTATION: Yes oriented to person, Yes oriented to place and Yes oriented to time Skin: COMMON NORMALS: no rashes or lesions noted GENERAL SKIN EXAM: no rashes or lesions noted Course Vital Signs: Vital signs: Vital Signs Temperature 97.9 F 03/26/20 10:39 Pulse Rate 52 L 03/26/20 15:08 Respiratory Rate 18 03/26/20 15:08 Blood Pressure 128/82 03/26/20 15:08 Pulse Oximetry 98 03/26/20 15:08 MDM - Chest Pain MDM Narrative: Medical decision making narrative: Reviewed findings with the patient. He does have metastasis to the ribs and spine suspect that as a source of his pain we will go ahead and treat his pain he has previously been prescribed various narcotics he has not been taking the Percocet encouraged him to go back to that see if it controls the pain follow-up with oncology and/or pain clinic for further treatment he may benefit from evaluation for palliative radiation treatment for his pain as well. Lab Data: Labs: Lab Results 03/26/20 03/26/20 03/26/20 Range/Units 10:57 10:57 10:57 WBC 13.5 H (4.0-10.0) 10^3/ uL RBC 4.96 (4.1-5.3) 10^6/u L Hgb 13.7 (11.7-16.6) g/dL Hct 43.1 (42.0-52.0) % MCV 86.9 (80-94) fL MCH 27.6 L (28.0-34.0) pg MCHC 31.8 (30.0-36.0) g/dL RDW 14.4 (12.1-15.1) % Plt Count 271 (130-400) 10^3/c mm MPV 10.1 (7.4-10.4) fL Neut % (Auto) 73.4 % Lymph % (Auto) 15.4 % [place] % (Auto) 9.1 % Eos % (Auto) 1.3 % Baso % (Auto) 0.4 % Neut # (Auto) 9.93 H (1.8-7.7) 10^3/u L Lymph # (Auto) 2.1 (0.8-4.8) 10^3/u L [place] # (Auto) 1.2 H (0.2-0.9) 10^3/u L Eos # (Auto) 0.2 (0.0-0.8) 10^3/u L Baso # (Auto) 0.1 (0.0-0.1) 10^3/u L Nucleated RBC % (a uto) 0 % Nucleated RBCs # 0.0 /100WBC Sodium Cancelled Potassium Cancelled Chloride Cancelled Carbon Dioxide Cancelled Anion Gap Cancelled BUN Cancelled Creatinine Cancelled GFR Calculation Cancelled Glucose Cancelled Calculated Osmolal ity Cancelled Calcium Cancelled Total Bilirubin Cancelled AST Cancelled ALT Cancelled Alkaline Phosphata se Cancelled Troponin T Baselin e Cancelled Troponin T 120 Min [place] (0-15) ng/L Delta Troponin T (0-10) ABS# Total Protein Cancelled Albumin Cancelled Globulin Cancelled 03/26/20 03/26/20 03/26/20 Range/Units 11:31 11:31 13:51 WBC (4.0-10.0) 10^3/ uL RBC (4.1-5.3) 10^6/u L Hgb (11.7-16.6) g/dL Hct (42.0-52.0) % MCV (80-94) fL MCH (28.0-34.0) pg MCHC (30.0-36.0) g/dL RDW (12.1-15.1) % Plt Count (130-400) 10^3/c mm MPV (7.4-10.4) fL Neut % (Auto) % Lymph % (Auto) % [place] % (Auto) % Eos % (Auto) % Baso % (Auto) % Neut # (Auto) (1.8-7.7) 10^3/u L Lymph # (Auto) (0.8-4.8) 10^3/u L [place] # (Auto) (0.2-0.9) 10^3/u L Eos # (Auto) (0.0-0.8) 10^3/u L Baso # (Auto) (0.0-0.1) 10^3/u L Nucleated RBC % (a uto) % Nucleated RBCs # /100WBC Sodium 139 Potassium 3.7 Chloride 106 Carbon Dioxide 21 L Anion Gap 15.7 BUN 15 Creatinine 1.4 H GFR Calculation 53.4 L Glucose 120 H Calculated Osmolal ity 290 Calcium 10.8 H Total Bilirubin 0.6 AST 19 ALT 13 Alkaline Phosphata se 148 H Troponin T Baselin e 30 H Troponin T 120 Min [place] 30.81 H (0-15) ng/L Delta Troponin T 0.81 (0-10) ABS# Total Protein 7.0 Albumin 3.5 Globulin 3.5 Discharge Plan Discharge Patient Disposition: Home Clinical Impression: Cancer determined by renal biopsy, Metastatic renal cell carcinoma to bone Condition: Stable Prescriptions: No Action aspirin [Enteric Coated Aspirin] 81 mg tablet,delayed release (DR/EC) 81 mg PO DAILY RF: 0 atorvastatin 40 mg tablet 40 mg PO DAILY RF: 0 clonidine HCl 0.1 mg tablet 0.1 mg PO BID RF: 0 hydralazine 50 mg tablet 50 mg PO BID RF: 0 lisinopril 40 mg tablet 40 mg PO DAILY RF: 0 Hold Instructions: Resume on 03/19/20. metoprolol tartrate 100 mg tablet 100 mg PO BID RF: 0 nifedipine 60 mg tablet extended release 60 mg PO DAILY RF: 0 omeprazole 20 mg capsule,delayed release(DR/EC) 20 mg PO DAILY RF: 0 ondansetron HCl 4 mg tablet 4 mg PO DAILY PRN (Reason: N/V) RF: 0 sertraline 50 mg tablet 50 mg PO DAILY RF: 0 temazepam 30 mg capsule 30 mg PO BEDTIME RF: 0 methocarbamol 500 mg tablet 500 mg PO TID PRN (Reason: Pain) RF: 0 Opdivo 240 mg/24 mL solution 240 mg IVP .BIWEELY RF: 0 naloxone 4 mg/actuation spray,non-aerosol 4 mg INTRANASAL Q3M PRN (Reason: opioid overdose) Qty: 2 RF: 0 morphine 30 mg tablet,oral only,extnd release 30 mg PO Q12H 30 Days Qty: 60 RF: 0 hydrocodone-acetaminophen 5-325 mg tablet 1 tab PO BID PRN (Reason: pain (scale score 7-10)) 30 Days Qty: 60 RF: 0 naloxegol 25 mg tablet 25 mg PO QAM PRN (Reason: Constipation) RF: 0 Discharge Orders: Discharge Order (Routine); Ordered 03/26/20 Ordered By: Faheem Kim Referrals: Harmony Jane NP [Primary Care Provider] - Discharge Diet: Usual diet Discharge Activity: Resume usual activity Activity Restrictions/Additional Instructions: Use previously prescribed pain medications. Your cardiac enzymes and CTA of the chest were negative for cardiopulmonary related issues. If pain is not well controlled with the Percocet follow-up with Dr. Thornton or the pain clinic. . If you have any further problems return to the emergency room. 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
[2020-03-26 11:13] LABS: Basophils # 0.1 10^3/uL (0.0-0.1); Basophils % 0.4 %; Eosinophils # 0.2 10^3/uL (0.0-0.8); Eosinophils % 1.3 %; Hematocrit 43.1 % (42.0-52.0); Hemoglobin 13.7 g/dL (11.7-16.6); Lymphocytes # 2.1 10^3/uL (0.8-4.8); Lymphocytes % 15.4 %; Mean Corpuscular HGB Conc 31.8 g/dL (30.0-36.0); Mean Corpuscular Hemoglobin 27.6 pg (28.0-34.0); Mean Corpuscular Volume 86.9 fL (80-94); Mean Platelet Volume 10.1 fL (7.4-10.4); Monocytes # 1.2 10^3/uL (0.2-0.9); Monocytes % 9.1 %; Neutrophils # 9.93 10^3/uL (1.8-7.7); Neutrophils % 73.4 %; Nucleated Red Blood Cells % 0 %; Platelet Count 271 10^3/cmm (130-400); Red Blood Count 4.96 10^6/uL (4.1-5.3); Red Cell Distribution Width 14.4 % (12.1-15.1); White Blood Count 13.5 10^3/uL (4.0-10.0)
--- NOTE | 2020-03-26 12:26 | CT_ITS ---
WS: [id number] CT CHEST ANGIOGRAPHY WITH REFORMATS HISTORY: chest pain, dyspnea TECHNIQUE: Contiguous axial images are obtained through the chest during arterial injection of intrav enous contrast. Images are reconstructed to evaluate the pulmonary arteries. MIP imaging also reviewe d. All CT scans at [facility] use at least one of these dose optimization techniques: aut omated exposure control; mA and/or kV adjustment per patient size (includes targeted exams where dose is matched to clinical indication); or iterative reconstruction. CONTRAST: Omnipaque 350; 95 mL IV. DLP: 597.62 mGy.cm COMPARISON: 03/15/2020 Good opacification of the pulmonary artery. No pulmonary emboli identified. Mild atherosclerosis aort a with no aneurysm. No dissection. Heart is slightly enlarged with no pericardial effusion. No pleura l effusion. Bilateral areas of linear atelectasis in the mid and lower lung [place]. No dense consolid ation or pneumonia. RIGHT hilar lymph node measures 16 mm. Patient has known metastatic lesions in the liver. These lesions are not very well seen on this early arterial enhancement phase. No adrenal mass. Patient has known multiple metastatic lesions throughout the spine and ribs. Numerous expansile rib l esions are identified. The paraspinal soft tissue mass measuring 2.0 x 2.7 cm adjacent to the RIGHT u pper thoracic vertebral bodies. This mass may extend into the foramen at T3-4. No cord compression. CT/CT angio chest PE protcl [id number] IMPRESSION: 1. No pulmonary embolism. 2. Bilateral mid and lower lung areas of atelectasis. 3. Patient has known numerous metastatic lesions with bone destruction involvi ng the ribs and spine. No cord compression. 4. RIGHT hilar enlarged lymph node measures 16 mm and is likely metastatic.
--- NOTE | 2020-03-26 12:48 | ECG_ITS ---
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 Measurements Intervals [place] Rate: 47 P: 40 ID: [id number] QRS: -76 QRSD: 184 T: 23 QT: 510 QTc: 455 Interpretive Statements SINUS BRADYCARDIA POSSIBLE LEFT ATRIAL ENLARGEMENT [-0.1mV P WAVE IN V1/V2] RIGHT BUNDLE BRANCH BLOCK [120+ ms QRS DURATION, UPRIGHT V1, 40+ ms S IN I/aVL/V4/V5/V6] LEFT ANTERIOR FASCICULAR BLOCK [QRS AXIS <= -45, QR IN I, RS IN II] Compared to ECG 03/26/2020 10:36:39 No significant changes Electronically Signed On 03-26-2020 16:42:54 DEGREASER by Robi Powell M.D. [id number]
[2020-03-26 12:50] LABS: Troponin(5th) Baseline 30 ng/L (0-15)
[2020-03-26 13:02] LABS: Alanine Aminotransferase 13 U/L (0-41); Albumin Level 3.5 g/dL (3.5-5.2); Alkaline Phosphatase 148 IU/L (40-130); Anion Gap 15.7 (5-19); Aspartate Amino Transferase 19 U/L (0-40); Blood Urea Nitrogen 15 mg/dL (6-20); Calcium 10.8 mg/dL (8.5-10.5); Carbon Dioxide 21 mmol/L (22-29); Chloride 106 mmol/L (98-107); Globulin 3.5 g/dL (1.3-4.6); Glomerular Filtration Rate 53.4 mL/min (90-130); Glucose 120 mg/dL (65-115); Osmolality Calculated 290 mOsm/kg (285-295); Potassium 3.7 mmol/L (3.5-5.1); Sodium 139 mmol/L (136-145); Total Bilirubin 0.6 mg/dL (0.15-1.2)
[2020-03-26] MEDS: iohexol 350 mg/mL 100 mL Btl IV (14:01)
--- NOTE | 2020-03-26 14:03 | PC.NURSE ---
Patient returned from CT
[2020-03-26 14:25] LABS: Troponin 5 2HR 30.81 ng/L (0-15); Troponin 5 2HR Delta 0.81 ABS# (0-10)
[2020-03-26 15:08] VITALS: BP 128/82; PULSE 52; RESP 18; O2SAT 98
--- NOTE | 2020-03-26 16:48 | ECG_ITS ---
[facility] Test Date: 2020-03-26 Pat Name: Sylvester Ojeda Department: Room: Gender: Male Cotton Farmer: : 1970 Requested By: Faheem Harris Order Number: [id number] Jack MD: Robi Powell M.D. Measurements Intervals [place] Rate: 48 P: 39 [place]: 161 QRS: -79 QRSD: 190 T: 27 QT: 514 QTc: 461 Interpretive Statements SINUS BRADYCARDIA POSSIBLE LEFT ATRIAL ENLARGEMENT [-0.1mV P WAVE IN V1/V2] LEFT AXIS DEVIATION [QRS AXIS < -30] RIGHT BUNDLE BRANCH BLOCK [120+ ms QRS DURATION, UPRIGHT V1, 40+ ms S IN I/aVL/V4/V5/V6] Compared to ECG 03/26/2020 12:53:44 Left-axis deviation now present Left anterior fascicular block no longer present Electronically Signed On 03-26-2020 16:42:46 RN UTILIZATION MANAGEMENT UM by Robi Powell M.D. [id number]
== END 2020-03-26 15:11 | disposition home or self-care (01) ==
PROVIDERS: Emergency Provider Family Medicine; PCP Nurse Practitioner Family
DX: C64.9 Malignant neoplasm of unspecified kidney, except renal pelvis (principal); C79.51 Secondary malignant neoplasm of bone; Z79.82 Long term (current) use of aspirin; I10 Essential (primary) hypertension
CPT/HCPCS: 12345; 36415; 71045; 71275; 80053; 84484; 85025; 93005; 99282; 99283; Q9967

== ENCOUNTER → 2020-04-02 09:59 | Outpatient (BNVA) | payer OTHER, SELFPAY | PROVIDERS: PCP Nurse Practitioner Family; Visit Provider Anesthesiology Pain Medicine | DX: G89.3 Neoplasm related pain (acute) (chronic) (principal); C64.1 Malignant neoplasm of right kidney, except renal pelvis; C64.9 Malignant neoplasm of unspecified kidney, except renal pelvis; C79.51 Secondary malignant neoplasm of bone; Z79.891 Long term (current) use of opiate analgesic | CPT/HCPCS: 99213 ==

== ENCOUNTER 2020-04-02 11:16 | Outpatient (CLI) | payer OTHER, SELFPAY ==
--- NOTE | 2020-04-02 11:26 | XRR_ITS ---
PROCEDURE INFORMATION: Exam: XR Left Femur Exam date and time: 04/02/2020 11:30 AM Age: 49 years old Clinical indication: Bone mets TECHNIQUE: Imaging protocol: XR Left femur. Views: 2 views. COMPARISON: NM bone scan whole body* [id number] 03/19/2020 9:00:00 AM FINDINGS: Bones/joints: No fracture. No dislocation. Small lytic lesion in the mid femoral diaphysis. There is degenerative change in the medial femoral tibial joint compartment and patellofemoral joint compartment. Soft tissues: No acute soft tissue abnormality. XR/XR femur LT min 2V* [id number] IMPRESSION: 1. Left femoral diaphyseal metastatic deposit. 2. Osteoarthritis.
--- NOTE | 2020-04-02 11:26 | XRR_ITS ---
PROCEDURE INFORMATION: Exam: XR Right Tibia and Fibula Exam date and time: 04/02/2020 11:30 AM Age: 49 years old Clinical indication: Bone mets TECHNIQUE: Imaging protocol: XR Right tibia and fibula. Views: 2 views. COMPARISON: NM bone scan whole body* [id number] 03/19/2020 9:00:00 AM FINDINGS: Bones/joints: No fracture. No dislocation. Small sclerotic foci present in the proximal and distal fibula as well as the distal tibia with no concurrent abnormal uptake on the comparison bone scan. Favor small bone islands. No lytic lesions. Degenerative changes present in the knee, most prominently at the patellofemoral joint compartment. Soft tissues: No acute soft tissue abnormality. Vasculature: Calcified phleboliths in the superficial soft tissue the anterior calf. Medial calcinosis in the tibial arteries. XR/XR tibia fibula RT 2V [id number] IMPRESSION: Small sclerotic foci in the fibula and tibia for which bone islands are favored. No osseous lytic lesions.
--- NOTE | 2020-04-02 11:26 | XRR_ITS ---
PROCEDURE INFORMATION: Exam: XR Left Humerus Exam date and time: 04/02/2020 11:30 AM Age: 49 years old Clinical indication: Bone mets TECHNIQUE: Imaging protocol: XR Left humerus Views: 2 or more views. COMPARISON: No relevant prior studies available. FINDINGS: Bones/joints: No fracture. No dislocation. Oval-shaped well-defined sclerotic focus in the greater tuberosity for which a bone island is favored. Minimal degenerative change at the glenohumeral joint. Soft tissues: No acute soft tissue abnormality. XR/[place] [id number] IMPRESSION: 1. Sclerotic focus in the greater tuberosity for which a bone island is favored. 2. Left glenohumeral joint degeneration.
[2020-04-02 12:49] LABS: Basophils # 0.1 10^3/uL (0.0-0.1); Basophils % 0.7 %; Eosinophils # 0.2 10^3/uL (0.0-0.8); Eosinophils % 1.5 %; Hematocrit 45.3 % (42.0-52.0); Hemoglobin 13.9 g/dL (11.7-16.6); Lymphocytes # 2.8 10^3/uL (0.8-4.8); Lymphocytes % 24.2 %; Mean Corpuscular HGB Conc 30.7 g/dL (30.0-36.0); Mean Corpuscular Hemoglobin 27.2 pg (28.0-34.0); Mean Corpuscular Volume 88.6 fL (80-94); Mean Platelet Volume 9.5 fL (7.4-10.4); Monocytes # 0.8 10^3/uL (0.2-0.9); Monocytes % 7.2 %; Neutrophils # 7.64 10^3/uL (1.8-7.7); Neutrophils % 66.1 %; Nucleated Red Blood Cells % 0 %; Platelet Count 354 10^3/cmm (130-400); Red Blood Count 5.11 10^6/uL (4.1-5.3); Red Cell Distribution Width 14.2 % (12.1-15.1); White Blood Count 11.6 10^3/uL (4.0-10.0)
[2020-04-02 13:18] LABS: Alanine Aminotransferase 12 U/L (0-41); Albumin Level 3.6 g/dL (3.5-5.2); Alkaline Phosphatase 153 IU/L (40-130); Anion Gap 15.4 (5-19); Aspartate Amino Transferase 21 U/L (0-40); Blood Urea Nitrogen 18 mg/dL (6-20); Carbon Dioxide 20 mmol/L (22-29); Chloride 104 mmol/L (98-107); Globulin 4.3 g/dL (1.3-4.6); Glomerular Filtration Rate 42.7 mL/min (90-130); Glucose 139 mg/dL (65-115); Osmolality Calculated 284 mOsm/kg (285-295); Potassium 4.4 mmol/L (3.5-5.1); Sodium 135 mmol/L (136-145); Total Bilirubin 0.6 mg/dL (0.15-1.2); Total Protein 7.9 g/dL (6.6-8.7)
[2020-04-02 13:24] LABS: Calcium 13.8 mg/dL (8.5-10.5)
[2020-04-02] MEDS: sodium chloride 0.9% 100 mL Bag IV (16:30)
[2020-04-02] MEDS: sodium chloride 0.9% 1,000 ML 999 ML IV (16:30)
== END 2020-04-02 11:17 | disposition home or self-care (01) ==
LOC: RAD 11:22 → ONCMED 12:10
PROVIDERS: PCP Nurse Practitioner Family; Visit Provider Internal Medicine Hematology & Oncology
DX: C64.1 Malignant neoplasm of right kidney, except renal pelvis (principal); C78.00 Secondary malignant neoplasm of unspecified lung; C79.51 Secondary malignant neoplasm of bone; E83.52 Hypercalcemia
CPT/HCPCS: 73060; 73552; 73590; 80053; 85025; 96361; 96365; 96367; J1100; J3489; J7030

== ENCOUNTER 2020-04-23 05:38 | Outpatient (RCR) | payer OTHER, SELFPAY ==
[2020-04-03] MEDS: sodium chloride 0.9% 1,000 ML 1000 ML IV (12:54)
[2020-04-04] MEDS: sodium chloride 0.9% 1,000 ML 999 ML IV (12:28)
[2020-04-04] MEDS: dexamethasone 4 mg/mL INJ 5 mL 10 MG IV (12:28)
[2020-04-05 08:28] LABS: Basophils % 0.1 %; Hematocrit 40.6 % (42.0-52.0); Hemoglobin 12.9 g/dL (11.7-16.6); Lymphocytes # 2.1 10^3/uL (0.8-4.8); Mean Corpuscular HGB Conc 31.8 g/dL (30.0-36.0); Mean Corpuscular Hemoglobin 27.4 pg (28.0-34.0); Mean Corpuscular Volume 86.4 fL (80-94); Mean Platelet Volume 9.5 fL (7.4-10.4); Monocytes # 0.8 10^3/uL (0.2-0.9); Monocytes % 5.5 %; Neutrophils # 11.79 10^3/uL (1.8-7.7); Nucleated Red Blood Cells % 0 %; Platelet Count 378 10^3/cmm (130-400); Red Cell Distribution Width 14.5 % (12.1-15.1); White Blood Count 14.8 10^3/uL (4.0-10.0)
[2020-04-05 08:50] LABS: Alanine Aminotransferase 14 U/L (0-41); Albumin Level 3.3 g/dL (3.5-5.2); Alkaline Phosphatase 136 IU/L (40-130); Aspartate Amino Transferase 24 U/L (0-40); Blood Urea Nitrogen 24 mg/dL (6-20); Calcium 10.9 mg/dL (8.5-10.5); Carbon Dioxide 18 mmol/L (22-29); Chloride 103 mmol/L (98-107); Globulin 3.7 g/dL (1.3-4.6); Glomerular Filtration Rate 63.8 mL/min (90-130); Glucose 136 mg/dL (65-115); Osmolality Calculated 282 mOsm/kg (285-295); Sodium 133 mmol/L (136-145); Total Bilirubin 0.4 mg/dL (0.15-1.2)
--- NOTE | 2020-04-05 15:44 | ONC FU_ITS ---
Dr. Thornton follow up note Patient: Sylvester Ojeda Unit #: [id number]: [id number] Dicatated By: Isabell Thornton M.D.Date of Visit:Apr 05, 2020 Onc Med Follow-up/Prog Note History of Present Illness: Mr. Sylvester Ojeda, is a 49-year-old gentleman with a history of metastatic renal cell carcinoma diagnosed on June 07, 2018 when he underwent liver biopsy which confirmed poorly differentiated carcinoma, consistent with renal primary. As per patient, before diagnosis he was having excessive drowsiness subsequently on June 06, 2018 he was admitted to [facility] in [place] with hypercalcemia at that time he underwent CT scan of chest abdomen pelvis which confirmed right renal mass with multiple lung nodules and liver lesions. Patient also had CT scan of head which was negative for metastatic disease at that time his calcium level was 16.7 with a creatinine 2.77, patient was treated with hydration and also received a dose of Aredia 60 mg. Patient was started on Cabometyx 60 mg p.o. daily on June 18, 2018, and reevaluation on July 02, 2018 showed his creatinine improved to 1.95 from 2.77 but calcium again increased to 14.5 at that time denosumab 120 mg was started on July 02, 2018 and patient developed skin rash and hypertension due to Cabometyx and on September 08, 2018 his Cabometyx dose was decreased to 40 mg p.o. daily due to related side effects. Which he tolerated better and then on December 01, 2018 he went to hospital with shortness of breath CT angio PE protocol revealed moderate sized pleural effusion, thoracentesis was performed and due to recurrent pleural effusions patient had chest tube placed on January 05, 2019. And his Cabometyx was discontinued. Patient was started on Yervoy/Opdivo on on January 28, 2019 and received 3 cycles and it was discontinued because of elevated bilirubin. Patient was treated with steroid for his abnormal LFTs with return to normal. Patient was placed back on single agent Opdivo every 2 weeks on May 2019, which he tolerated well his follow-up CT scan of chest abdomen pelvis done on November 16, 2019 showed 1.3 x 0.9 cm right lower lobe nodule previously measured 1.2 x 0.9., Adjacent right lower lobe nodule is unchanged. 0.6 cm. Segment left lower lobe nodules unchanged. 1 x 0.9 cm perifissural nodule in the middle lobe is unchanged. No new or enlarging dominant nodules or masses seen. Atelectasis or scarring of right base is seen. Mediastinum and chidi showed right paratracheal node measuring 1.4 cm compared to 1.1 cm on previous study subcarinal node measuring up to 1.7 cm compared to 0.6 cm on prior study. An additional 1.8 cm subcarinal lymph node is present as well. 1.5 cm right hilar node previously measured 1.3 cm. 1.7 cm right hilar node previously measured 1.6 cm. Liver showed ill-defined segment 7 lesion measuring up to 2.6 cm which is similar to prior study and remaining bilateral hepatic metastatic disease appears similar to prior. No new lesions seen. Bone shows multiple old right rib fractures. No suspicious sclerotic or lytic bone lesion seen. Patient continue with biweekly Opdivo and follow-up CT scan of chest abdomen pelvis done on January 31, 2020 showed with the exception of smaller subcarinal lymph node the other enlarged mediastinal lymph nodes are unchanged. Stable pulmonary nodules. Stable hepatic metastatic disease. Stable lobulated mass in the right kidney. Now seen are multiple lytic lesions within the pelvis, sacrum, thoracic and lumbar spine and ribs bilaterally.Patient decided to move to [place] from [place], and Started on biweekly Opdivo on March 01, 2020 Bone scan done on March 19, 2020 shows numerous areas of moderate to severe uptake within several ribs bilaterally in the proximal right humerus is an area of increased uptake suspicious for metastatic disease. No definite spinal lesions are identified. But spinal lesions were identified on the prior CT chest. There are multiple lytic destructive lesion noted in the thoracic and lumbar spine. Increased uptake in the left inferior pubic rami and superior right pubic rami. Focal area of intermediate uptake in the right superior sacrum. Additional intermediate uptake in the distal left femur and area of increased uptake in the left tibia Plain x-ray done on April 02, 2020 showed left femur with diaphyseal metastatic deposit as per discussion with Dr. Lira radiologist cortex of the femur is fine, no risk of impending fracture and left humerus showed sclerotic focus in the greater tuberosity for which a bone island is favored. Came for follow-up, denies any specific complaints, no fever chills, no nausea or vomiting, no diarrhea constipation, patient was treated with Zometa and dexamethasone and hydration on April 02, 2020 for hypercalcemia as his calcium level was 13.8 and he did receive dexamethasone and hydration on April 03 and 2019 and now feeling much better has no specific complaints, no mental status changes no fever no chills no nausea vomiting no constipation in fact with a laxative he had a good response and did notice some blood in his stool x1 probably due to anal tear as he felt some discomfort in the anal area which is now improving. Medications: Aspirin Adult Low Dose 1 Tablet (of 81 mg) Tablet, enteric coated Oral daily, Atorvastatin Calcium 1 Tablet (of 40 mg) Oral daily, cloNIDine HCl 1 Tablet (of 0.1 mg) Oral b.i.d., hydrALAZINE HCl 1 Tablet (of 50 mg) Oral b.i.d., HYDROcodone-Acetaminophen Tablet Oral PRN, Lisinopril 1 Tablet (of 40 mg) Oral daily, Methocarbamol Tablet Oral, Metoprolol Tartrate 1 Tablet (of 100 mg) Oral b.i.d., Morphine Sulfate ER 1 Tablet (of 30 mg) Tablet, controlled release Oral b.i.d., NIFEdipine ER 1 Tablet (of 60 mg) Tablet SR 24 HR Oral daily, Omeprazole 1 Tablet (of 20 mg) Tablet, enteric coated Oral daily, Ondansetron HCl Tablet Oral, Sertraline HCl 1 Tablet (of 50 mg) Oral daily, Temazepam 1 Capsule (of 30 mg) Oral daily Allergies: No Known Allergies. Review of Systems: Constitutional - Appetite is fair and weight is stable. No fever, night sweats, or hot flashes. Energy level is good, ENMT - No sinus congestion. Positive for nasal drainage. No mouth sores. No sore throat or difficulty swallowing, Hematologic/Lymphatic - No abnormal bruising or bleeding, Respiratory - No shortness of breath. No cough. No pleuritic pain or hemoptysis, Cardiovascular - No angina pain. No palpitations, Gastrointestinal - No nausea or vomiting. Positive for heartburn, no acid reflux. No diarrhea or constipation. No blood in the stool or black stools, Genitourinary (M) - No dysuria or hematuria. No urinary frequency. No urgency or incontinence, Musculoskeletal - Positive for generalized joint pain, Neurologic - No headache or dizziness. No numbness or tingling. No other focal neurologic symptoms, Psychiatric - Positive for anxiety, no depression. No insomnia. Vital Signs: Performed on Apr 05, 2020 10:32 Height - 66.00 in Weight - 258.2 lbs (LOW) BSA - 2.23 sq.m BMI - 41.67 (HIGH) Temperature - 97.1 F (LOW) Pulse - 48 /min (LOW) Respiration - 20 /min BP - 102/52 mm(hg) O2 Sat - 93 % (LOW) Pain - 7 Performance Status: 0 - Fully active, able to carry on all predisease activities without restrictions. (ECOG) Physical Examination: ENMT - No mouth sores, no thrush, no jaundice, Respiratory - Lungs are clear to auscultation, Cardiovascular - Regular rate and rhythm of heart, Abdomen - Soft, bowel sounds present, Extremities - No visible edema or rash. Lab/Imaging: Test performed on Apr 02, 2020 12:35 Sodium 135 mmol/L Potassium 4.4 mmol/L Chloride 104 mmol/L CO2 20 mmol/L Anion Gap 15.4 BUN 18 mg/dL Creatinine 1.7 mg/dL Cr Clearance (Est) 85.2300 mL/min eGFR 42.7 mL/min Glucose 139 mg/dL Osmolality - Calculated 284 mOsm/kg Calcium 13.8 mg/dL Protein, Total 7.9 g/dL Albumin 3.6 g/dL Globulin 4.3 g/dL Bilirubin, Total 0.6 mg/dL ALT (SGPT) 12 U/L AST (SGOT) 21 U/L Alkaline Phosphatase 153 IU/L WBC 11.6 10 3/uL RBC 5.11 10 6/uL HGB 13.9 g/dL HCT 45.3 % MCV 88.6 fL MCH 27.2 pg MCHC 30.7 g/dL RDW 14.2 % Platelet Count 354 10 3/cmm MPV 9.5 fL Neutrophils 7.64 10 3/uL Lymphocytes 2.8 10 3/uL Monocytes 0.8 10 3/uL Eosinophils 0.2 10 3/uL Basophils 0.1 10 3/uL Neutrophil % 66.1 % Lymphocyte % 24.2 % Monocyte % 7.2 % Eosinophil % 1.5 % Basophils % 0.7 % NRBC % 0 % Impression: Metastatic renal cell carcinoma with extensive mets involving bilateral lungs, mediastinum as well as liver and primary in the right kidney, diagnosed in June 2018 per liver biopsy, initially treated with Cabometyx, patient developed side effect like hypertension and skin reaction, Cabometyx dose was reduced to 40 mg p.o. daily from 60 mg, subsequently patient admitted to hospital with progressive pleural effusion which was drained, due to recurrence required chest tube placement. Cabometyx was discontinued in November 2018, he was started on Yervoy/Opdivo on January 28, 2019, patient received 3 doses of immunotherapy but then presented with elevated bilirubin, he was treated with steroids and changed to biweekly Opdivo alone on May 2019. Follow-up CT scan of chest abdomen pelvis done on January 31, 2020 showed stable disease in the lung and liver but no progressive bone mets. Hypercalcemia, probably due to extensive bone mets Plan: Discussed with patient regarding his labs white blood count 14.8 hemoglobin 12.9 hematocrit 40.6 platelets 378,000 CMP within normal limits except calcium 10.9 compared to 13.8 on April 02, 2020 and glucose 136 and plain x-ray of left femur showed no impending fracture but metastatic deposit whereas left humerus shows sclerotic lesion favoring bone island Clinically, patient is doing reasonably well, no more mental status changes, constipation is relieved with laxative. Recently done lab work-up showed hypercalcemia which responded well to dexamethasone/hydration as well as dose of Zometa was given on April 02, 2020, We will proceed with his next biweekly dose of nivolumab today and then he will return to clinic in 2 weeks with CBC CMP and patient was advised in case he has any new symptoms he need to call us. Signed By: Isabell Thornton M.D. <<Signature on File>>
== END 2020-05-03 23:59 | disposition home or self-care (01) ==
LOC: ONCMED 05:38
PROVIDERS: PCP Nurse Practitioner Family; Visit Provider Internal Medicine Hematology & Oncology
DX: Z51.12 Encounter for antineoplastic immunotherapy (principal); C64.1 Malignant neoplasm of right kidney, except renal pelvis; C78.01 Secondary malignant neoplasm of right lung; C78.02 Secondary malignant neoplasm of left lung; C79.51 Secondary malignant neoplasm of bone; E83.52 Hypercalcemia; Z79.899 Other long term (current) drug therapy
CPT/HCPCS: 80053; 85025; 96361; 96365; 96413; 99214; J1100; J7030; J7050; J9299

== ENCOUNTER → 2020-05-08 16:58 | Outpatient (BNVA) | payer OTHER, SELFPAY | PROVIDERS: PCP Nurse Practitioner Family; Referring Provider Internal Medicine Hematology & Oncology; Visit Provider Internal Medicine Hematology & Oncology | DX: C64.1 Malignant neoplasm of right kidney, except renal pelvis (principal); C79.51 Secondary malignant neoplasm of bone; E83.52 Hypercalcemia | CPT/HCPCS: 80053; 85007; 85027 ==

== ENCOUNTER 2020-05-30 05:34 | Outpatient (RCR) | payer OTHER, SELFPAY ==
[2020-05-09 08:53] LABS: Basophils # 0.1 10^3/uL (0.0-0.1); Basophils % 0.3 %; Eosinophils # 0.1 10^3/uL (0.0-0.8); Eosinophils % 0.6 %; Hematocrit 37.4 % (42.0-52.0); Hemoglobin 11.5 g/dL (11.7-16.6); Lymphocytes # 2.2 10^3/uL (0.8-4.8); Lymphocytes % 10.7 %; Mean Corpuscular HGB Conc 30.7 g/dL (30.0-36.0); Mean Corpuscular Hemoglobin 26.1 pg (28.0-34.0); Mean Platelet Volume 10.1 fL (7.4-10.4); Neutrophils # 17.01 10^3/uL (1.8-7.7); Neutrophils % 82.9 %; Nucleated Red Blood Cells % 0 %; Platelet Count 325 10^3/cmm (130-400); Red Cell Distribution Width 16.2 % (12.1-15.1); White Blood Count 20.5 10^3/uL (4.0-10.0)
[2020-05-09 09:41] LABS: Alanine Aminotransferase 21 U/L (0-41); Albumin Level 3.2 g/dL (3.5-5.2); Alkaline Phosphatase 149 IU/L (40-130); Aspartate Amino Transferase 30 U/L (0-40); Blood Urea Nitrogen 19 mg/dL (6-20); Calcium 9.9 mg/dL (8.5-10.5); Carbon Dioxide 17 mmol/L (22-29); Chloride 106 mmol/L (98-107); Globulin 3.8 g/dL (1.3-4.6); Glomerular Filtration Rate 63.8 mL/min (90-130); Glucose 115 mg/dL (65-115); Osmolality Calculated 285 mOsm/kg (285-295); Sodium 136 mmol/L (136-145); Total Bilirubin 0.5 mg/dL (0.15-1.2)
[2020-05-09] MEDS: sodium chloride 0.9% 500 ML 999 ML IV (10:17)
--- NOTE | 2020-05-11 13:34 | ONC FU_ITS ---
Dr. Thornton follow up note Patient: Sylvester Ojeda Unit #: [id number]: [id number] Dicatated By: Isabell Thornton M.D.Date of Visit:May 09, 2020 Onc Med Follow-up/Prog Note History of Present Illness: Mr. Sylvester Ojeda, is a 49-year-old gentleman with a history of metastatic renal cell carcinoma diagnosed on June 07, 2018 when he underwent liver biopsy which confirmed poorly differentiated carcinoma, consistent with renal primary. As per patient, before diagnosis he was having excessive drowsiness subsequently on June 06, 2018 he was admitted to [facility] in [place] with hypercalcemia at that time he underwent CT scan of chest abdomen pelvis which confirmed right renal mass with multiple lung nodules and liver lesions. Patient also had CT scan of head which was negative for metastatic disease at that time his calcium level was 16.7 with a creatinine 2.77, patient was treated with hydration and also received a dose of Aredia 60 mg. Patient was started on Cabometyx 60 mg p.o. daily on June 18, 2018, and reevaluation on July 02, 2018 showed his creatinine improved to 1.95 from 2.77 but calcium again increased to 14.5 at that time denosumab 120 mg was started on July 02, 2018 and patient developed skin rash and hypertension due to Cabometyx and on September 08, 2018 his Cabometyx dose was decreased to 40 mg p.o. daily due to related side effects. Which he tolerated better and then on December 01, 2018 he went to hospital with shortness of breath CT angio PE protocol revealed moderate sized pleural effusion, thoracentesis was performed and due to recurrent pleural effusions patient had chest tube placed on January 05, 2019. And his Cabometyx was discontinued. Patient was started on Yervoy/Opdivo on on January 28, 2019 and received 3 cycles and it was discontinued because of elevated bilirubin. Patient was treated with steroid for his abnormal LFTs with return to normal. Patient was placed back on single agent Opdivo every 2 weeks on May 2019, which he tolerated well his follow-up CT scan of chest abdomen pelvis done on November 16, 2019 showed 1.3 x 0.9 cm right lower lobe nodule previously measured 1.2 x 0.9., Adjacent right lower lobe nodule is unchanged. 0.6 cm. Segment left lower lobe nodules unchanged. 1 x 0.9 cm perifissural nodule in the middle lobe is unchanged. No new or enlarging dominant nodules or masses seen. Atelectasis or scarring of right base is seen. Mediastinum and chidi showed right paratracheal node measuring 1.4 cm compared to 1.1 cm on previous study subcarinal node measuring up to 1.7 cm compared to 0.6 cm on prior study. An additional 1.8 cm subcarinal lymph node is present as well. 1.5 cm right hilar node previously measured 1.3 cm. 1.7 cm right hilar node previously measured 1.6 cm. Liver showed ill-defined segment 7 lesion measuring up to 2.6 cm which is similar to prior study and remaining bilateral hepatic metastatic disease appears similar to prior. No new lesions seen. Bone shows multiple old right rib fractures. No suspicious sclerotic or lytic bone lesion seen. Patient continue with biweekly Opdivo and follow-up CT scan of chest abdomen pelvis done on January 31, 2020 showed with the exception of smaller subcarinal lymph node the other enlarged mediastinal lymph nodes are unchanged. Stable pulmonary nodules. Stable hepatic metastatic disease. Stable lobulated mass in the right kidney. Now seen are multiple lytic lesions within the pelvis, sacrum, thoracic and lumbar spine and ribs bilaterally.Patient decided to move to [place] from [place], and Started on biweekly Opdivo on March 01, 2020 Bone scan done on March 19, 2020 shows numerous areas of moderate to severe uptake within several ribs bilaterally in the proximal right humerus is an area of increased uptake suspicious for metastatic disease. No definite spinal lesions are identified. But spinal lesions were identified on the prior CT chest. There are multiple lytic destructive lesion noted in the thoracic and lumbar spine. Increased uptake in the left inferior pubic rami and superior right pubic rami. Focal area of intermediate uptake in the right superior sacrum. Additional intermediate uptake in the distal left femur and area of increased uptake in the left tibia Plain x-ray done on April 02, 2020 showed left femur with diaphyseal metastatic deposit as per discussion with Dr. Lira radiologist cortex of the femur is fine, no risk of impending fracture and left humerus showed sclerotic focus in the greater tuberosity for which a bone island is favored. Came for follow-up, complaining of generalized weakness and fatigue as per patient, he has been sick with hypercalcemia and was admitted to hospital in [place] on April 30 through May 05, 2020 with hypercalcemia and acute renal damage and he was treated with IV fluids and was given Xgeva and prednisone before that he was admitted to [facility] [place] with similar problem. Now feeling somewhat better but generalized weakness and fatigue due to poor oral intake. But no fever chills, no nausea or vomiting, no diarrhea or constipation but generalized body aches Medications: Aspirin Adult Low Dose 1 Tablet (of 81 mg) Tablet, enteric coated Oral daily, Atorvastatin Calcium 1 Tablet (of 40 mg) Oral daily, cloNIDine HCl 1 Tablet (of 0.1 mg) Oral b.i.d., Duragesic-12 1 Patch(es) (of 12 mcg/hr) Patch 72 Hr Transdermal q 72 hours, hydrALAZINE HCl 1 Tablet (of 50 mg) Oral b.i.d., HYDROcodone-Acetaminophen Tablet Oral PRN, Lisinopril 1 Tablet (of 40 mg) Oral daily, Methocarbamol Tablet Oral, Metoprolol Tartrate 1 Tablet (of 100 mg) Oral b.i.d., Morphine Sulfate ER 1 Tablet (of 30 mg) Tablet, controlled release Oral b.i.d., NIFEdipine ER 1 Tablet (of 60 mg) Tablet SR 24 HR Oral daily, Omeprazole 1 Tablet (of 20 mg) Tablet, enteric coated Oral daily, Ondansetron HCl Tablet Oral, Sertraline HCl 1 Tablet (of 50 mg) Oral daily, Temazepam 1 Capsule (of 30 mg) Oral daily Allergies: No Known Allergies. Review of Systems: Review of Systems is not available for this patient. Vital Signs: Performed on May 09, 2020 09:07 Height - 66.00 in Weight - 232.8 lbs (LOW) BSA - 2.13 sq.m BMI - 37.58 (HIGH) Temperature - 97.5 F (LOW) Pulse - 75 /min Respiration - 16 /min BP - 118/78 mm(hg) O2 Sat - 98 % Pain - 8 Performance Status: 2 - Ambulatory/capable of all self-care, unable to perform any work activities. Up and about more than 50% of waking hours. (ECOG) Physical Examination: ENMT - Dry oral mucosa, poor oral hygiene but no mucositis, no jaundiceNo thrush, Respiratory - Lungs are clear to auscultation, Cardiovascular - Regular rate and rhythm of heart, Abdomen - Soft, bowel sounds present, Extremities - Trace edema bilaterally. Lab/Imaging: Test performed on May 09, 2020 08:37 Glucose 115 mg/dL BUN 19 mg/dL Creatinine 1.2 mg/dL Cr Clearance (Est) 108.78 mL/min Sodium 136 mmol/L Potassium 4.0 mmol/L Chloride 106 mmol/L CO2 17 mmol/L Calcium 9.9 mg/dL Protein, Total 7.0 g/dL Albumin 3.2 g/dL Globulin 3.8 g/dL Bilirubin, Total 0.5 mg/dL Alkaline Phosphatase 149 IU/L AST (SGOT) 30 IU/L ALT (SGPT) 21 IU/L WBC 20.5 10^9/L RBC 4.4 10^12/L HGB 11.5 g/dL HCT 37.4 % MCV 85 fl MCH 26.1 pg MCHC 30.7 g/dL RDW 16.2 % Platelet Count 325 10^9/L Neutrophils (Gran) 17 10^9/L Lymphocytes 2.2 10^9/L Monocytes 1.0 10^9/L Eosinophils 0.1 10^9/L Basophils 0.1 10^9/L Test performed on Apr 05, 2020 08:17 Anion Gap 16.0 eGFR 63.8 mL/min Osmolality - Calculated 282 mOsm/kg Neutrophil % 80.0 % Eosinophil % 0.0 % Basophils % 0.1 % NRBC % 0 % Test performed on Apr 05, 2020 00:00 Manual Diff DUP ORDER Impression: Metastatic renal cell carcinoma with extensive mets involving bilateral lungs, mediastinum as well as liver and primary in the right kidney, diagnosed in June 2018 per liver biopsy, initially treated with Cabometyx, patient developed side effect like hypertension and skin reaction, Cabometyx dose was reduced to 40 mg p.o. daily from 60 mg, subsequently patient admitted to hospital with progressive pleural effusion which was drained, due to recurrence required chest tube placement. Cabometyx was discontinued in November 2018, he was started on Yervoy/Opdivo on January 28, 2019, patient received 3 doses of immunotherapy but then presented with elevated bilirubin, he was treated with steroids and changed to biweekly Opdivo alone on May 2019. Follow-up CT scan of chest abdomen pelvis done on January 31, 2020 showed stable disease in the lung and liver but no progressive bone mets. Hypercalcemia, probably due to extensive bone mets Plan: Discussed with patient regarding his labs white blood count 20.5 hemoglobin 11.5 hematocrit 37.4 platelets 325,000 CMP within normal limits Clinically, patient appears mildly dehydrated due to poor oral intake, we will consider normal saline 500 cc and then return to clinic in 1 week in the meantime we will obtain records from [facility] and if patient feels better then will consider resuming his nivolumab and also consider ordering follow-up CT PET scan to assess disease status. Signed By: Isabell Thornton M.D. <<Signature on File>>
[2020-05-15 13:48] LABS: Basophils # 0.1 10^3/uL (0.0-0.1); Basophils % 0.4 %; Eosinophils # 0.2 10^3/uL (0.0-0.8); Eosinophils % 1.1 %; Hemoglobin 11.2 g/dL (11.7-16.6); Lymphocytes % 12.4 %; Mean Corpuscular HGB Conc 30.3 g/dL (30.0-36.0); Mean Corpuscular Hemoglobin 25.7 pg (28.0-34.0); Mean Corpuscular Volume 85.1 fL (80-94); Mean Platelet Volume 9.6 fL (7.4-10.4); Monocytes % 6.4 %; Neutrophils # 12.54 10^3/uL (1.8-7.7); Neutrophils % 79.2 %; Nucleated Red Blood Cells % 0 %; Platelet Count 449 10^3/cmm (130-400); Red Blood Count 4.35 10^6/uL (4.1-5.3); Red Cell Distribution Width 16.5 % (12.1-15.1); White Blood Count 15.8 10^3/uL (4.0-10.0)
[2020-05-15 14:12] LABS: Alanine Aminotransferase 14 U/L (0-41); Albumin Level 3.4 g/dL (3.5-5.2); Alkaline Phosphatase 146 IU/L (40-130); Anion Gap 16.8 (5-19); Aspartate Amino Transferase 25 U/L (0-40); Blood Urea Nitrogen 16 mg/dL (6-20); Calcium 10.1 mg/dL (8.5-10.5); Carbon Dioxide 15 mmol/L (22-29); Chloride 107 mmol/L (98-107); Globulin 4.3 g/dL (1.3-4.6); Glomerular Filtration Rate 63.8 mL/min (90-130); Glucose 101 mg/dL (65-115); Osmolality Calculated 281 mOsm/kg (285-295); Potassium 3.8 mmol/L (3.5-5.1); Sodium 135 mmol/L (136-145); Total Bilirubin 0.6 mg/dL (0.15-1.2); Total Protein 7.7 g/dL (6.6-8.7)
--- NOTE | 2020-05-15 15:55 | ONC FU_ITS ---
Dr. Thornton follow up note Patient: Sylvester Ojeda Unit #: [id number]: [id number] Dicatated By: Isabell Thornton M.D.Date of Visit:May 15, 2020 Onc Med Follow-up/Prog Note History of Present Illness: Mr. Sylvester Ojeda, is a 49-year-old gentleman with a history of metastatic renal cell carcinoma diagnosed on June 07, 2018 when he underwent liver biopsy which confirmed poorly differentiated carcinoma, consistent with renal primary. As per patient, before diagnosis he was having excessive drowsiness subsequently on June 06, 2018 he was admitted to [facility] in [place] with hypercalcemia at that time he underwent CT scan of chest abdomen pelvis which confirmed right renal mass with multiple lung nodules and liver lesions. Patient also had CT scan of head which was negative for metastatic disease at that time his calcium level was 16.7 with a creatinine 2.77, patient was treated with hydration and also received a dose of Aredia 60 mg. Patient was started on Cabometyx 60 mg p.o. daily on June 18, 2018, and reevaluation on July 02, 2018 showed his creatinine improved to 1.95 from 2.77 but calcium again increased to 14.5 at that time denosumab 120 mg was started on July 02, 2018 and patient developed skin rash and hypertension due to Cabometyx and on September 08, 2018 his Cabometyx dose was decreased to 40 mg p.o. daily due to related side effects. Which he tolerated better and then on December 01, 2018 he went to hospital with shortness of breath CT angio PE protocol revealed moderate sized pleural effusion, thoracentesis was performed and due to recurrent pleural effusions patient had chest tube placed on January 05, 2019. And his Cabometyx was discontinued. Patient was started on Yervoy/Opdivo on on January 28, 2019 and received 3 cycles and it was discontinued because of elevated bilirubin. Patient was treated with steroid for his abnormal LFTs with return to normal. Patient was placed back on single agent Opdivo every 2 weeks on May 2019, which he tolerated well his follow-up CT scan of chest abdomen pelvis done on November 16, 2019 showed 1.3 x 0.9 cm right lower lobe nodule previously measured 1.2 x 0.9., Adjacent right lower lobe nodule is unchanged. 0.6 cm. Segment left lower lobe nodules unchanged. 1 x 0.9 cm perifissural nodule in the middle lobe is unchanged. No new or enlarging dominant nodules or masses seen. Atelectasis or scarring of right base is seen. Mediastinum and chidi showed right paratracheal node measuring 1.4 cm compared to 1.1 cm on previous study subcarinal node measuring up to 1.7 cm compared to 0.6 cm on prior study. An additional 1.8 cm subcarinal lymph node is present as well. 1.5 cm right hilar node previously measured 1.3 cm. 1.7 cm right hilar node previously measured 1.6 cm. Liver showed ill-defined segment 7 lesion measuring up to 2.6 cm which is similar to prior study and remaining bilateral hepatic metastatic disease appears similar to prior. No new lesions seen. Bone shows multiple old right rib fractures. No suspicious sclerotic or lytic bone lesion seen. Patient continue with biweekly Opdivo and follow-up CT scan of chest abdomen pelvis done on January 31, 2020 showed with the exception of smaller subcarinal lymph node the other enlarged mediastinal lymph nodes are unchanged. Stable pulmonary nodules. Stable hepatic metastatic disease. Stable lobulated mass in the right kidney. Now seen are multiple lytic lesions within the pelvis, sacrum, thoracic and lumbar spine and ribs bilaterally.Patient decided to move to [place] from [place], and Started on biweekly Opdivo on March 01, 2020 Bone scan done on March 19, 2020 shows numerous areas of moderate to severe uptake within several ribs bilaterally in the proximal right humerus is an area of increased uptake suspicious for metastatic disease. No definite spinal lesions are identified. But spinal lesions were identified on the prior CT chest. There are multiple lytic destructive lesion noted in the thoracic and lumbar spine. Increased uptake in the left inferior pubic rami and superior right pubic rami. Focal area of intermediate uptake in the right superior sacrum. Additional intermediate uptake in the distal left femur and area of increased uptake in the left tibia Plain x-ray done on April 02, 2020 showed left femur with diaphyseal metastatic deposit as per discussion with Dr. Lira radiologist cortex of the femur is fine, no risk of impending fracture and left humerus showed sclerotic focus in the greater tuberosity for which a bone island is favored. Came for follow-up, except generalized weakness and fatigue and bony pains which is somewhat under control with current pain medication morphine at night and Percocet on as-needed basis during the daytime. Otherwise alert and oriented x3, no fever chills, no nausea or vomiting, no diarrhea or constipation, no wheezing, no skin rash, no jaundice, no headaches blurred vision or double vision, on May 01, 2020 patient was r admitted to hospital in [facility], with mental status changes and hypercalcemia and, CT scan of head was done which showed no evidence of brain mets, hypercalcemia resolved with hydration and as per patient he was also given dose of biphosphonate. Medications: Aspirin Adult Low Dose 1 Tablet (of 81 mg) Tablet, enteric coated Oral daily, Atorvastatin Calcium 1 Tablet (of 40 mg) Oral daily, cloNIDine HCl 1 Tablet (of 0.1 mg) Oral b.i.d., Duragesic-12 1 Patch(es) (of 12 mcg/hr) Patch 72 Hr Transdermal q 72 hours, hydrALAZINE HCl 1 Tablet (of 50 mg) Oral b.i.d., HYDROcodone-Acetaminophen Tablet Oral PRN, Lisinopril 1 Tablet (of 40 mg) Oral daily, Methocarbamol Tablet Oral, Metoprolol Tartrate 1 Tablet (of 100 mg) Oral b.i.d., Morphine Sulfate ER 1 Tablet (of 30 mg) Tablet, controlled release Oral b.i.d., NIFEdipine ER 1 Tablet (of 60 mg) Tablet SR 24 HR Oral daily, Omeprazole 1 Tablet (of 20 mg) Tablet, enteric coated Oral daily, Ondansetron HCl Tablet Oral, Sertraline HCl 1 Tablet (of 50 mg) Oral daily, Temazepam 1 Capsule (of 30 mg) Oral daily Allergies: No Known Allergies. Review of Systems: Constitutional - Appetite is fair and weight is stable. No fever, night sweats, or hot flashes. Energy level is good, ENMT - No sinus congestion. Positive for nasal drainage. No mouth sores. No sore throat or difficulty swallowing, Hematologic/Lymphatic - No abnormal bruising or bleeding, Respiratory - No shortness of breath. No cough. No pleuritic pain or hemoptysis, Cardiovascular - No angina pain. No palpitations, Gastrointestinal - No nausea or vomiting. Positive for heartburn, no acid reflux. No diarrhea or constipation. No blood in the stool or black stools, Genitourinary (M) - No dysuria or hematuria. No urinary frequency. No urgency or incontinence, Musculoskeletal - Positive for generalized joint pain, Neurologic - No headache or dizziness. No numbness or tingling. No other focal neurologic symptoms, Psychiatric - Positive for anxiety, no depression. No insomnia. Vital Signs: Performed on May 15, 2020 14:37 Height - 66.00 in Weight - 228.4 lbs (LOW) BSA - 2.12 sq.m BMI - 36.86 (HIGH) Temperature - 97.7 F (LOW) Pulse - 65 /min Respiration - 16 /min BP - 115/70 mm(hg) O2 Sat - 98 % Pain - 6 Performance Status: 1 - No physically strenuous activity, but ambulatory and able to carry out light or sedentary work (e.g. office work, light house work). (ECOG) Physical Examination: ENMT - No mouth sores, no thrush, no jaundice, Respiratory - Lungs are clear to auscultation, Cardiovascular - Regular rate and rhythm of heart, Abdomen - Soft, bowel sounds present, Extremities - No visible edema. Lab/Imaging: Test performed on May 09, 2020 08:37 Glucose 115 mg/dL BUN 19 mg/dL Creatinine 1.2 mg/dL Cr Clearance (Est) 108.78 mL/min Sodium 136 mmol/L Potassium 4.0 mmol/L Chloride 106 mmol/L CO2 17 mmol/L Calcium 9.9 mg/dL Protein, Total 7.0 g/dL Albumin 3.2 g/dL Globulin 3.8 g/dL Bilirubin, Total 0.5 mg/dL Alkaline Phosphatase 149 IU/L AST (SGOT) 30 IU/L ALT (SGPT) 21 IU/L WBC 20.5 10^9/L RBC 4.4 10^12/L HGB 11.5 g/dL HCT 37.4 % MCV 85 fl MCH 26.1 pg MCHC 30.7 g/dL RDW 16.2 % Platelet Count 325 10^9/L Neutrophils (Gran) 17 10^9/L Lymphocytes 2.2 10^9/L Monocytes 1.0 10^9/L Eosinophils 0.1 10^9/L Basophils 0.1 10^9/L Test performed on Apr 05, 2020 08:17 Anion Gap 16.0 eGFR 63.8 mL/min Osmolality - Calculated 282 mOsm/kg Neutrophil % 80.0 % Eosinophil % 0.0 % Basophils % 0.1 % NRBC % 0 % Test performed on Apr 05, 2020 00:00 Manual Diff DUP ORDER Impression: Metastatic renal cell carcinoma with extensive mets involving bilateral lungs, mediastinum as well as liver and primary in the right kidney, diagnosed in June 2018 per liver biopsy, initially treated with Cabometyx, patient developed side effect like hypertension and skin reaction, Cabometyx dose was reduced to 40 mg p.o. daily from 60 mg, subsequently patient admitted to hospital with progressive pleural effusion which was drained, due to recurrence required chest tube placement. Cabometyx was discontinued in November 2018, he was started on Yervoy/Opdivo on January 28, 2019, patient received 3 doses of immunotherapy but then presented with elevated bilirubin, he was treated with steroids and changed to biweekly Opdivo alone on May 2019. Follow-up CT scan of chest abdomen pelvis done on January 31, 2020 showed stable disease in the lung and liver but no progressive bone mets. Hypercalcemia, probably due to extensive bone mets Plan: Discussed with patient regarding his labs white blood count 15.8 hemoglobin 11.2 hematocrit 37 platelets 449,000 CMP within normal limits Clinically, patient is doing reasonably well his follow-up labs shows calcium within normal range. Patient is tolerating orally well, overall feeling better and discussed with regarding further treatment planning, and in the last few weeks, patient is having problem with recurrent hypercalcemia and his bone scan done in March 2020 showed extensive bone mets and and CT scan of chest abdomen pelvis earlier showed clinically stable visceral disease, moreover he could not get durvalumab on schedule because of recurrent hospital admissions and other issues, so at this time we have decided to switch him to pembrolizumab 200 mg IV every 3 weeks and axitinib 5 mg p.o. every 12 hours, if tolerated increase to 7 mg every 12 hours after 2 weeks and further titration to 10 mg every 12 hours if tolerated. All the side effects possible benefits associated with this regimen including but not limited to hepatic toxicity, nausea vomiting, endocrinopathy, generalized weakness and fatigue, were mentioned further teaching will be done by chemotherapy nurse. We will obtain approval from his insurance prior to the treatment, and we will also obtain baseline CT PET scan for future comparison and we will repeat scans after 4 cycles to assess response. And also continue monthly Xgeva to prevent skeletal related complication and to control hypercalcemia. Patient return to clinic 1 week after axitinib/pembrolizumab with CBC CMP Signed By: Isabell Thornton M.D. <<Signature on File>>
[2020-05-30 12:51] LABS: Basophils # 0.1 10^3/uL (0.0-0.1); Basophils % 0.5 %; Eosinophils # 0.3 10^3/uL (0.0-0.8); Eosinophils % 1.8 %; Hematocrit 37.2 % (42.0-52.0); Lymphocytes # 2.3 10^3/uL (0.8-4.8); Lymphocytes % 16.7 %; Mean Corpuscular HGB Conc 29.6 g/dL (30.0-36.0); Mean Corpuscular Hemoglobin 25.1 pg (28.0-34.0); Mean Corpuscular Volume 84.7 fL (80-94); Mean Platelet Volume 9.2 fL (7.4-10.4); Monocytes # 1.5 10^3/uL (0.2-0.9); Monocytes % 11.4 %; Neutrophils # 9.39 10^3/uL (1.8-7.7); Neutrophils % 69.2 %; Nucleated Red Blood Cells % 0 %; Platelet Count 438 10^3/cmm (130-400); Red Blood Count 4.39 10^6/uL (4.1-5.3); Red Cell Distribution Width 16.7 % (12.1-15.1); White Blood Count 13.6 10^3/uL (4.0-10.0)
[2020-05-30 13:32] LABS: Alanine Aminotransferase 9 U/L (0-41); Albumin Level 3.2 g/dL (3.5-5.2); Alkaline Phosphatase 142 IU/L (40-130); Anion Gap 15.5 (5-19); Aspartate Amino Transferase 25 U/L (0-40); Blood Urea Nitrogen 20 mg/dL (6-20); Calcium 10.6 mg/dL (8.5-10.5); Carbon Dioxide 18 mmol/L (22-29); Chloride 107 mmol/L (98-107); Globulin 4.5 g/dL (1.3-4.6); Glucose 116 mg/dL (65-115); Osmolality Calculated 288 mOsm/kg (285-295); Potassium 3.5 mmol/L (3.5-5.1); Sodium 137 mmol/L (136-145); Thyroid Stimulating Hormone 1.36 uIU/mL (0.27-4.20); Total Bilirubin 0.4 mg/dL (0.15-1.2); Total Protein 7.7 g/dL (6.6-8.7)
[2020-05-30] MEDS: denosumab 120 mg SDV SUBCUT (15:05)
[2020-05-30] MEDS: sodium chloride 0.9% 250 ML 125 ML IV (15:21)
[2020-05-30 15:43] LABS: Ferritin 919 ng/mL (30-400); Iron 21 ug/dL (59-158); Percent Saturation 11.6 % (20-50); Total Iron Binding Capacity 180 mcg/dl; Unsaturated Iron Binding 159 ug/dL (112-347)
--- NOTE | 2020-06-07 14:55 | ONC FU_ITS ---
Kavitha Bradshaw Patient Note Patient: Sylvester Ojeda Unit #: [id number]: [id number] Dictated By: Mary BoucherDate of Visit: May 30, 2020 Onc MED Follow-Up/Prog Note Chief Complaint: Metastatic renal cell carcinoma History of Present Illness: Mr. Ojeda is a 49-year-old gentleman with a history of metastatic renal cell carcinoma diagnosed on June 07, 2018. He had initially presented to the emergency room at [facility] on June 06, 2018 for worsening confusion and abdominal pain, nausea and loss of appetite. He had persistent cough. Prior to his ER work-up, he did have a CT of the chest abdomen pelvis @ [facility] in [place], [place] (06/03/2018-per his PCP, Dr Sergio Hartley for abdominal discomfort/nausea) and there was a mass on the right kidney suspicious of malignancy. His CT is also reported multiple lung nodules and liver lesions. During his ER visit and then admission to [facility], both MR and CT without contrast of the head were negative for metastatic disease. He was admitted to the ICU as he had a calcium level of 16.7 with a creatinine of 2.77. His white count on admission was 14.5. His BN P was 563 with a troponin of 0.059. His EKG did show some QRS widening. His hypercalcemia was treated with aggressive hydration and pamidronate. He underwent biopsy of one of the right lobe liver lesions on 06/07/2018 (@ [facility] in [place], [place]) and that was sent for pathology. That pathology was reported as poorly differentiated carcinoma, consistent with renal primary. On June 18, 2018 he was seen at [facility] medical oncology by Dr. Hernandez. At that time he was started on cabozantinib 60 mg daily and ondansetron 8 mg every 8 hours as needed. His creatinine at that visit was 1.28 and LFTs were essentially normal. His vitamin D was 17. His ANC was 4700 and hemoglobin was 9.3 with a white count of 7.6 platelets were 3 and 29,000. His calcium was 10.1. His follow-up visit in July 2018 reported a creatinine of 1.95 and a calcium of 14.5. At that time he was started on denosumab 120 mg which began on 07/02/2018. He did have delay of the cabozantinib due to hypertension and skin reaction. He then transferred his care to Dr. Rios at [facility] in [facility] at which time he was seen on 09/08/2018. At that time his cabozantinib had been decreased to 40 mg daily. Follow-up CT the chest abdomen pelvis on 10/13/2018 revealed a mass in the kidney concerning for renal neoplasm; numerous pulmonary nodules within the lungs; multiple low attenuating lesions within the liver concerning for metastatic disease. He presented to the local ER at [facility] on 12/01/2018 with shortness of breath. CT pulmonary angiogram revealed a moderate size pleural effusion. He did have thoracentesis. And consequently a chest tube placed on 01/05/2019. The cabozantinib was discontinued at that time. He began Yervoy Opdivo on 01/28/2019. His immunotherapy was held due to elevated bilirubin. Restaging imaging on 04/13/2019 reported interval decrease in the numerous pulmonary nodules and right pleural effusion; interval decrease in the size of numerous liver lesions; and interval decrease in the right renal mass. He was treated with steroids for his LFTs and these returned to normal. Mr Ojead was started back on single agent Opdivo every 2 weeks on May 2019, which he tolerated well. His follow-up CT scan of chest abdomen pelvis done on November 16, 2019 showed 1.3 x 0.9 cm right lower lobe nodule previously measured 1.2 x 0.9., Adjacent right lower lobe nodule is unchanged. 0.6 cm. Segment left lower lobe nodules unchanged. 1 x 0.9 cm perifissural nodule in the middle lobe is unchanged. No new or enlarging dominant nodules or masses seen. Atelectasis or scarring of right base is seen. Mediastinum and chidi showed right paratracheal node measuring 1.4 cm compared to 1.1 cm on previous study subcarinal node measuring up to 1.7 cm compared to 0.6 cm on prior study. An additional 1.8 cm subcarinal lymph node is present as well. 1.5 cm right hilar node previously measured 1.3 cm. 1.7 cm right hilar node previously measured 1.6 cm. Liver showed ill-defined segment 7 lesion measuring up to 2.6 cm which is similar to prior study and remaining bilateral hepatic metastatic disease appears similar to prior. No new lesions seen. Bone shows multiple old right rib fractures. No suspicious sclerotic or lytic bone lesion seen. Mr Ojeda continue with biweekly Opdivo. Follow-up CT scan of chest abdomen pelvis done on January 31, 2020 showed, with the exception of smaller subcarinal lymph node, the other enlarged mediastinal lymph nodes were unchanged. Stable pulmonary nodules. Stable hepatic metastatic disease. Stable lobulated mass in the right kidney. However new evidence was rpeorted for multiple lytic lesions within the pelvis, sacrum, thoracic and lumbar spine and ribs bilaterally. Mr Ojeda decided to move to [place], [place] from [place]. He was seen by Dr Thornton and was started on biweekly Opdivo on March 01, 2020. Bone scan done on March 19, 2020 shows numerous areas of moderate to severe uptake within several ribs bilaterally in the proximal right humerus is an area of increased uptake suspicious for metastatic disease. No definite spinal lesions are identified. But spinal lesions were identified on the prior CT chest. There are multiple lytic destructive lesion noted in the thoracic and lumbar spine. Increased uptake in the left inferior pubic rami and superior right pubic rami. Focal area of intermediate uptake in the right superior sacrum. Additional intermediate uptake in the distal left femur and area of increased uptake in the left tibia Plain x-ray done on April 02, 2020 showed left femur with diaphyseal metastatic deposit. As per Dr Thornton's note, his discussion with Dr. Lira radiologist cortex of the femur is fine, no risk of impending fracture and left humerus showed sclerotic focus in the greater tuberosity for which a bone island is favored. On May 01, 2020, Mr Ojeda was admitted to hospital in [facility], with mental status changes and hypercalcemia. A CT scan of head was done and reported no evidence of brain mets. The hypercalcemia resolved with hydration and as per patient he was also given dose of biphosphonate. Mr Ojeda was seen by Dr Thornton on 05/15/2020 and offered further treatment of his metastatic renal cell cancer, now with bone metastasis, with Keytruda (pembrolizumab), axitinib 5 mg twice daily for 2 weeks then 7 mg twice daily for 2 weeks then 10 mg twice daily as tolerated. He was also advised to continue his monthly Xgeva. He is here today for follow-up and to begin his first cycle of treatment. Mr. Ojeda states overall he feels pretty good. He is having some heartburn and some nausea. He states is been no worse than what is normal for me . He states his appetite is fair. His energy is marginal but overall he can get all of his ADLs done without any assistance. He denies any fever or chills. He denies mouth sores, sore throat or difficulty swallowing. He denies any changes in his bowel or bladder function. He states the nausea has been ongoing and is no worse than what it has been. It does respond to antiemetics when he takes them. He denies any new pain. He denies any lower extremity edema, shortness of breath, palpitations or chest pain. His ECOG is 1. Past Medical History: Hyperlipidemia Hypertension Past Surgical History: Mr. Ojeda's surgical history is unremarkable. Allergies: No Known Allergies. Medications: Aspirin Adult Low Dose 1 Tablet (of 81 mg) Tablet, enteric coated Oral daily Atorvastatin Calcium 1 Tablet (of 40 mg) Oral daily cloNIDine HCl 1 Tablet (of 0.1 mg) Oral b.i.d. hydrALAZINE HCl 1 Tablet (of 50 mg) Oral b.i.d. Lisinopril 1 Tablet (of 40 mg) Oral daily Methocarbamol Tablet Oral Metoprolol Tartrate 1 Tablet (of 100 mg) Oral b.i.d. Morphine Sulfate ER 1 Tablet (of 60 mg) Tablet, controlled release Oral b.i.d. NIFEdipine ER 1 Tablet (of 60 mg) Tablet SR 24 HR Oral daily Omeprazole 1 Tablet (of 20 mg) Tablet, enteric coated Oral daily Ondansetron HCl Tablet Oral oxyCODONE-Acetaminophen 1 Tablet (of 10-325 mg) Oral q 6 hours PRN Sertraline HCl 1 Tablet (of 50 mg) Oral daily Temazepam 1 Capsule (of 30 mg) Oral daily Family History: Social History: Mr. Ojeda is . Mr. Ojeda has never smoked. Review Of Symptoms: Constitutional Denies fevers, chills, night sweats, excessive fatigue or weight loss. Allergic/Immunologic No reactions. Eyes Denies significant visual changes. No diplopia. No amaurosis. ENMT Denies changes in hearing, sore throat, mouth sores, difficulty or changes in swallowing ability, and/or sinus drainage. Endocrine No diabetes, thyroid disease or hormone replacement. Denies hot flashes or night sweats. Hematologic/Lymphatic Denies easy bruising or bleeding. The patient denies any tender or palpable lymph nodes. Respiratory Denies dyspnea on exertion, chest pain, cough or hemoptysis. Denies orthopnea. Cardiovascular Denies anginal chest pain, palpitations or orthopnea. Gastrointestinal Denies vomiting, diarrhea, GI bleeding, or constipation. Denies change in bowel habits and/or stool color. Genitourinary (M) Denies hematuria, dysuria, increased frequency, urgency, hesitancy or incontinence. Musculoskeletal Denies joint pain, swelling or redness. No decreased range of motion. Integumentary Denies chronic rashes, inflammation, ulcerations or skin changes. Neurologic Denies headache, blurred vision, and no areas of focal weakness or numbness. Normal gait. No sensory problems. Psychiatric Denies insomnia, depression, olive or mood swings. Vital Signs: Performed on May 30, 2020 13:59 Height - 66.00 in Weight - 228.00 lbs (LOW) BSA - 2.11 sq.m BMI - 36.80 (HIGH) Temperature - 97.2 F (LOW) Pulse - 61 /min Respiration - 18 /min BP - 109/64 mm(hg) O2 Sat - 95 % (LOW) Pain - 0,1 - No physically strenuous activity, but ambulatory and able to carry out light or sedentary work (e.g. office work, light house work). (ECOG) Physical Examination: Constitutional Alert, oriented, no acute distress. Skin pink, warm and dry. Head Normocephalic; atraumatic. Eyes Conjunctivae and sclerae are clear and without icterus. Pupils are reactive and equal. ENMT No oral exudates, ulcers, masses, thrush or mucositis. Oropharynx clear. Tongue normal. Neck Supple without masses or thyromegaly. No jugular venous distension. Hematologic/Lymphatic No petechiae or purpura. No tender or palpable lymph nodes in the cervical or supraclavicular areas. Respiratory Lungs are clear to auscultation without rhonchi or wheezing. Cardiovascular Regular rate and rhythm of heart without murmurs,clicks, gallops or rubs. Abdomen Non-tender, non-distended, no masses or ascites. Good bowel sounds noted in all quads. No guarding or rebound tenderness. No pulsatile masses. Back/Spine Non-tender to palpation. Extremities No visible deformities, no cyanosis, clubbing or edema. Musculoskeletal No tenderness or swelling, normal range of motion without obvious weakness. Integumentary No rashes or lesions. Neurologic No sensory or motor deficits, normal cerebellar function, normal gait. Psychiatric Alert and oriented times three. Coherent speech. Verbalizes understanding of our discussions today. Laboratory:Test performed on May 30, 2020 12:27 Sodium 137 mmol/L TSH 1.36 uIU/mL Potassium 3.5 mmol/L Chloride 107 mmol/L CO2 18 mmol/L Anion Gap 15.5 BUN 20 mg/dL Creatinine 1.8 mg/dL Cr Clearance (Est) 71.0200 mL/min eGFR 40.0 mL/min Glucose 116 mg/dL Osmolality - Calculated 288 mOsm/kg Calcium 10.6 mg/dL Protein, Total 7.7 g/dL Albumin 3.2 g/dL Globulin 4.5 g/dL Bilirubin, Total 0.4 mg/dL ALT (SGPT) 9 U/L AST (SGOT) 25 U/L Alkaline Phosphatase 142 IU/L WBC 13.6 10 3/uL RBC 4.39 10 6/uL HGB 11.0 g/dL HCT 37.2 % MCV 84.7 fL MCH 25.1 pg MCHC 29.6 g/dL RDW 16.7 % Platelet Count 438 10 3/cmm MPV 9.2 fL Neutrophils 9.39 10 3/uL Lymphocytes 2.3 10 3/uL Monocytes 1.5 10 3/uL Eosinophils 0.3 10 3/uL Basophils 0.1 10 3/uL Neutrophil % 69.2 % Lymphocyte % 16.7 % Monocyte % 11.4 % Eosinophil % 1.8 % Basophils % 0.5 % NRBC % 0 % Test performed on May 30, 2020 12:22 Ferritin 919 ng/mL Iron 21 mcg/dL Iron Binding Capacity (TIBC) 180 mcg/dl % Iron Saturation 11.6 % UIBC 159 mcg/dL Test performed on Apr 05, 2020 00:00 Manual Diff DUP ORDER Impression: PROBLEM LIST Metastatic renal cell carcinoma with extensive mets involving bilateral lungs, mediastinum as well as liver and primary in the right kidney, diagnosed in June 2018 per liver biopsy, initially treated with Cabometyx, patient developed side effect like hypertension and skin reaction, Cabometyx dose was reduced to 40 mg p.o. daily from 60 mg, subsequently patient admitted to hospital with progressive pleural effusion which was drained, due to recurrence required chest tube placement. Cabometyx was discontinued in November 2018, he was started on Yervoy/Opdivo on January 28, 2019, patient received 3 doses of immunotherapy but then presented with elevated bilirubin, he was treated with steroids and changed to biweekly Opdivo alone on May 2019. Follow-up CT scan of chest abdomen pelvis done on January 31, 2020 showed stable disease in the lung and liver but no progressive bone mets. Hypercalcemia, probably due to extensive bone mets Plan: PROBLEMS ADDRESSED TODAY 1. Metastatic renal cell carcinoma with extensive metastatic disease involving both lungs, mediastinum, liver and bone mets. A. Stop nivolumab due to disease progression B. Proceed with cycle 1 pembrolizumab 200 mg every 3 weeks C. Proceed with cycle 1 axitinib 5 mg every 12 hours for 2 weeks then 7 mg every 12 hours for 2 weeks then 10 mg every 12 hours as tolerated. D. Proceed with Xgeva 120 mg monthly for bone involvement. E. Today's labs were reviewed in detail and discussed with Mr. Ojeda and a copy was given to him. WBC 13.6, hemoglobin was 11.0 platelets 1 36,000 ANC is 9400 potassium 3.5 creatinine 1.8 calcium 10.6 LFTs were normal alk phos was 142 but this has been normal range for him as has been 149 on May 09, 2020. His baseline TSH is 1.36. F. I did request a UA for axitinib monitoring for proteinuria. This will be baseline UA. G. We have asked for him to return for day 8 follow-up with CBC CMP. I have also asked for iron studies to be added to the blood in lab due to his anemia. His MCH and MCHC are slightly low. H. The patient and family were informed of chemotherapy plan and specific drugs were discussed. We also discussed how chemotherapy works and identified common side effects including alopecia; myelosuppression-including neutropenia, anemia, thrombocytopenia; peripheral neuropathy; fatigue; nausea; diarrhea; constipation; bleeding or bruising; skin changes; mouth sores; drug hypersensitivity/allergic reactions or anaphylaxis and extravasation. They have also been informed how to contact the clinic with side effects or symptoms, including but not limited to fever greater than 100.4???, chills, sore throat, bleeding or bruising that is not explained or mouth sores, cough, nasal discharge, diarrhea, constipation, nausea and/or vomiting not relieved with medications on hand at home, as well as any other concern or question they may have. Our hours are 8:00 a.m. to 4:30 p.m. on Thursday through and 8-12:00 on Thursday. However, someone is batch or continuous still operator 24 hours per day and they have been advised to contact the [facility] at if it is after hours. We have also discussed potential long-term side effects of chemotherapy including secondary cancers, infertility, pulmonary complications, cardiac complications, and again peripheral neuropathy. We have discussed that they certainly need to let us know before taking any antioxidants or herbal or further dietary supplements, as we are unsure of how these agents react with chemotherapy and we request that they avoid these products for now. They were informed that it is okay to take multivitamins at normal doses. They verbally state that they understand to take all medications as directed by their healthcare provider unless otherwise indicated. They also verbalized understanding to leave the pressure dressing on the intravenous administration site for at least two hours after treatment. Instructions for oral care with baking soda and salt water rinses as well as a guide for use of [id number] medication were provided with the treatment plan. They have been given a written patient treatment plan, of which a copy is in the chart, as well as specific drug information. They have no questions and verbalized understanding and are willing to proceed with chemotherapy at this time. The majority of this visit was spent in face to face communication with this patient and/or his/her family in regards to plan of care, side effect identification and management. I. Specific side effects of immunotherapy discussed included but not limited to: ??? pneumonitis: new or worsening cough; chest pain; and shortness of breath. ??? Colitis: diarrhea or more bowel movements than usual; blood in stools or dark, tarry, sticky stools; and severe stomach area (abdomen) pain or tenderness. ??? Encephalitis: confusion, headaches, mental status changes, disorientation * hepatitis: jaundice; severe nausea or vomiting; pain on the right side of the abdomen; drowsiness; dark urine; bleeding or bruise more easily than normal. ??? nephritis and kidney failure: including decrease in the amount of urine; hematuria; lower extremity edema; and loss of appetite. ??? thyroid and pituitary changes that may include: headaches that will not go away or unusual headaches; extreme tiredness, weight gain or weight loss; changes in mood or behavior, such as decreased sex drive, irritability, or forgetfulness; dizziness or fainting; hair loss; feeling cold; constipation; and voice gets deeper. ???rash; changes in eyesight; severe or persistent muscle or joint pains; and severe muscle weakness. J. The patient and family were informed of potential side effects of PXgeva (monoclonal antiboidy that binds to RANKL) include but not limited to nausea/vomiting, rash, fatigue, dizziness, hypophosphatemia, hypokalemia, hypomagnesemia, constipation, diarrhea, anemia, bone pain, myalgia, dyspnea, fever, cough, osteonecrosis of the jaw, hypocalcemia, cystitis and site reactions, such as infection, redness, swelling. They were instructed how to reach the provider batch or continuous still operator if questions or concerns arise. 2. Nausea: A. Utilize Compazine or ondanestron as needed for nausea B. Lorazepam as need for severe nausea C. Treat gastritis symptoms. 3. Gastritis/heartburn A. He was encouraged to take the omeprazole 20 mg daily but this is not helping he may bump to 20 mg twice a day and let us know if that is not helping. B. He may utilize Rolaids/Tums or Gaviscon/Mylanta as needed [id number]. 4. Follow-up plan. A. Plan to see him back as indicated above in 1 week with labs. B. He will be due back in 2 weeks for his next cycle of pembrolizumab. C. Mr. Ojeda was encouraged to contact us in interim should questions or problems arise. D. Total time spent [id number] in review of plan of care, answering questions as well as reviewing his medical history and current plan of care prior to his visit as well as documentation post visit was greater than 60 minutes. Signed By: Mary Boucher-, AOCNP Isabell Thornton MD <<Signature on File>>
== END 2020-06-03 23:59 | disposition home or self-care (01) ==
LOC: ONCMED 05:34
PROVIDERS: Internal Medicine Hematology & Oncology; PCP Nurse Practitioner Family; Visit Provider Nurse Practitioner
DX: Z51.12 Encounter for antineoplastic immunotherapy (principal); Z51.11 Encounter for antineoplastic chemotherapy; C64.1 Malignant neoplasm of right kidney, except renal pelvis; C78.01 Secondary malignant neoplasm of right lung; C78.02 Secondary malignant neoplasm of left lung; C79.51 Secondary malignant neoplasm of bone; I10 Essential (primary) hypertension; J90 Pleural effusion, not elsewhere classified; E83.52 Hypercalcemia; Z79.899 Other long term (current) drug therapy
CPT/HCPCS: 36415; 80053; 82728; 83540; 83550; 84443; 85025; 96360; 96372; 96413; 99214; 99215; J0897; J7040; J7050; J9271